=== PATIENT | male | born 1970 | race Caucasian/White ===

== ENCOUNTER → 2024-10-16 | Outpatient (CLI) | payer MEDICAID, SELFPAY ==
[2024-10-16 10:19] LABS: Hematocrit 42.1 % (40-54)
[2024-10-16 12:39] LABS: PSA,Total- Diagnostic 0.77 ng/mL (0.00-4.00)
[2024-10-17 04:07] LABS: PROLACTIN 8.4 ng/mL (3.6-25.2)
== END | disposition home or self-care (01) ==
LOC: MTLAB 07:46
PROVIDERS: PCP Family Medicine
DX: E29.1 Testicular hypofunction (principal)
CPT/HCPCS: 36415; 83002; 84146; 84153; 84403; 85014

== ENCOUNTER → 2024-11-17 | Outpatient (CLI) | payer MEDICAID, SELFPAY ==
[2024-11-17 13:20] LABS: Hematocrit 40.7 % (40-54); Hemoglobin 12.5 g/dL (13.0-16.5); Immature Granulocytes Count 0.740 X10^3/uL (0.0-0.0); Mean Corp Hgb Conc 30.7 g/dL (32-36); Mean Corpuscular Volume 75.8 fL (80-94); Mean Platelet Vol. 9.1 fl (6.2-12.0); NRBC Flagged by Analyzer 0 % (0-5); POSITIVE DIFFERENTIAL YES; POSITIVE MORPHOLOGY YES; Platelet Count 455 K/mm3 (150-450); RBC Distribution Width CV 16.9 % (11.6-14.6); RBC Distribution Width SD 45.1 fl (35.1-43.9); Red Blood Count 5.37 M/mm3 (4.6-6.2); White Blood Count 19.8 K/mm3 (4.4-11.0)
[2024-11-17 13:27] LABS: Iron 27 ug/dL (65-175); Iron Binding Capacity,Unsat 186 ug/dL (228-428)
[2024-11-17 13:38] LABS: Iron Binding Capacity,Total 213 ug/dL (250-450)
[2024-11-17 14:16] LABS: Differential Indicated SCAN CRITERIA MET; Toxic Granulation 1+
--- OUTSIDE RECORDS SUMMARY | 2024-11-17 20:04 | XMS RPT_ITS | CCD ---
Author Organization [facility] Care Team Providers Care Vendette Name Role Phone Esterle, Tisha Unavailable Unavailable Esterle, Tisha Unavailable Unavailable Esterle, Tisha Unavailable Unavailable TIMOTHY ALLEN~[phone], TIMOTHY lawton Unavailable TIMOTHY ALLEN~[id number], TIMOTHY Retana ng Unavailable ORLIN AGUIRRE MD Primary Care Unavailable ESTERLE, TISHA Primary Care Unavailable TIMOTHY ALLEN~[id number], TIMOTHY Morrowittreno ng Unavailable TIMOTHY ALLEN~[id number], TIMOTHY Retana ng Unavailable ESTERLE, TISHA Primary Care Unavailable TIMOTHY ALLEN~[id number], TIMOTHY Morrowittreno ng Unavailable TIMOTHY ALLEN~[id number], TIMOTHY Retana ng Unavailable Tisha Pérez DO Primary Care Provider [phone] CAYETANO GARCIA Attending Provider [phone] Tisha Pérez DO Primary Care Provider [phone] BASAR, SIVA Attending Unavailable BASAR, SIVA Referring Unavailable ESTERLE, TISHA Primary Care Unavailable BASAR, SIVA Attending Unavailable ESTERLE, TISHA Referring Unavailable ESTERLE, TISHA Primary Care Unavailable BASAR, SIVA Admitting Unavailable BASAR, SIVA Attending Unavailable ESTERLE, TISHA Referring Unavailable ESTERLE, TISHA Primary Care Unavailable Tisha Pérez M Primary Care Unavailable MANI LUND Attending Unavailable Tisha Pérez Attending Unavailable Tisha Pérez Primary Care Unavailable Medications Current Medications Medication Drug Class(es) Dates Sig (Normalized) Sig (Original) allopurinol 300 mg oral tablet (5 sources) Xanthine Oxidase Inhibitor Start: 09-22-2024 allopurinol (Zyloprim) 300 MG tablet 09/22/2024 Active ALPRAZolam 1 mg oral tablet (5 sources) Benzodiazepine Start: 09-24-2024 ALPRAZolam (Xanax) 1 MG tablet 09/24/2024 Active amLODIPine 5 mg / benazepril hydrochloride 40 mg oral capsule (5 sources) Dihydropyridine Calcium Channel Ghazal, Angiotensin Converting Enzyme Inhibitor Start: 09-22-2024 amLODIPine-benazepr il (Lotrel) 5-40 MG capsule 09/22/2024 Active B-D 3CC LUER-MARIELOS SYR 25GX1 25G X 1 3 ML misc (5 sources) Start: 09-22-2024 B-D 3CC LUER-MARIELOS SYR 25GX1 25G X 1 3 ML misc 09/22/2024 Active celecoxib 200 mg oral capsule (5 sources) Nonsteroidal Anti-inflammatory Drug Start: 09-22-2024 celecoxib (CeleBREX) 200 MG capsule 09/22/2024 Active cyclobenzaprine hydrochloride 10 mg oral tablet (5 sources) Muscle Relaxant Start: 09-10-2024 take 1 tablet by mouth every eight hours as needed cyclobenzaprine (Flexeril) 10 MG tablet Take 10 mg by mouth every 8 hours as needed. 09/10/2024 Active 0.5 ml dulaglutide 3 mg/ml auto-injector (5 sources) GLP-1 Receptor Agonist Start: 09-17-2024 Trulicity 1.5 MG/0.5ML 09/17/2024 Active empagliflozin 10 mg oral tablet (5 sources) Sodium-Glucose Cotransporter 2 Inhibitor Start: 09-12-2024 take 10 mg by mouth once daily Jardiance 10 MG Take 10 mg by mouth daily. 09/12/2024 Active mesalamine 1200 mg delayed release oral tablet (2 sources) Aminosalicylate Start: 11-04-2024 End: 03-04-2025 take 1 tablet by mouth four times daily mesalamine (Lialda) 1.2 g EC tablet Indications: Hx of ulcerative colitis Take 1 tablet (1.2 g) by mouth 4 times daily. Do not crush, chew, or split. 120 tablet 3 11/04/2024 03/04/2025 Active naloxone hydrochloride 40 mg/ml nasal spray (5 sources) Opioid Antagonist Start: 08-19-2024 naloxone (Narcan) 4 MG/0.1ML nasal spray instill 1 spray in 1 nostril if needed for symptoms of opioid overdose, if no responding repeat again in 3 minutes. If used call 911 08/19/2024 Active omeprazole 40 mg delayed release oral capsule (5 sources) Proton Pump Inhibitor Start: 09-17-2024 omeprazole (PriLOSEC) [address] capsule 09/17/2024 Active predniSONE 10 mg oral tablet (2 sources) Start: 11-04-2024 End: 01-06-2025 take 4 tablets by mouth once daily, then take 3.5 tablets by mouth once daily, then take 3 tablets by mouth once daily, then take 2.5 tablets by mouth once daily, then take 2 tablets by mouth once daily, then take 1.5 tablets by mouth once daily, then take 1 tablet by mouth once daily, then take 0.5 tablet by mouth once daily predniSONE (Deltasone) 10 MG tablet Indications: Hx of ulcerative colitis Take 4 tablets (40 mg) by mouth daily for 14 days, THEN 3.5 tablets (35 mg) daily for 7 days, THEN 3 tablets (30 mg) daily for 7 days, THEN 2.5 tablets (25 mg) daily for 7 days, THEN 2 tablets (20 mg) daily for 7 days, THEN 1.5 tablets (15 mg) daily for 7 days, THEN 1 tablet (10 mg) daily for 7 days, THEN 0.5 tablets (5 mg) daily for 7 days. 154 tablet 11/04/2024 01/06/2025 Active 1 ml testosterone cypionate 200 mg/ml injection (5 sources) Androgen Start: 09-24-2024 testosterone cypionate (Depo-Testosterone) 200 MG/ML injection 09/24/2024 Active traMADol hydrochloride 50 mg oral tablet (5 sources) Opioid Agonist Start: 09-22-2024 traMADol (Ultram) 50 MG tablet 09/22/2024 Active zolpidem tartrate 10 mg oral tablet (5 sources) gamma-Aminobutyric Acid-ergic Agonist Start: 07-29-2024 take 1 tablet by mouth at bedtime as needed zolpidem (Ambien) 10 MG tablet TAKE ONE TABLET BY MOUTH AT BEDTIME NEEDED (FOR insomnia) 07/29/2024 Active Completed/Discontinued Medications Medication Drug Class(es) Dates Sig (Normalized) Sig (Original) polyethylene glycol 3350 350565 mg / potassium chloride 2970 mg / sodium bicarbonate 6740 mg / sodium chloride 5860 mg / sodium sulfate 65858 mg powder for oral solution (1 source) Osmotic Laxative Start: 09-26-2024 End: 09-27-2024 polyethylene glycol (GaviLyte-G) 236 g solution Starting at noon on day prior to procedures, drink 8 ounces every 30 minutes until all gone and stools are clear. May add flavor packet. 4000 mL 09/26/2024 09/27/2024 Problems Problem Classification Problem Date Documented Da te Episodic/Chronic Abdominal pain (7 sources) Right upper quadrant pain; Translations: [Abdominal discomfort] Onset: 5 09-26-2024 Episodic Biliary tract disease (1 source) Other specified diseases of gallbladder; Translations: [OTHER SPEC DISEASES GALLBLADDER] Onset: 5 Episodic Esophageal disorders (5 sources) Gastroesophageal reflux disease without esophagitis; Translations: [Gastro-esophageal reflux disease without esophagitis] Onset: 5 09-26-2024 Chronic Gastrointestinal hemorrhage (2 sources) Hemorrhage of anus and rectum; Translations: [HEMORRHAGE OF ANUS AND RECTUM] Onset: 5 Episodic Malaise and fatigue (1 source) Other fatigue; Translations: [Other fatigue] Onset: 5 Episodic Other endocrine disorders (1 source) Testicular hypofunction; Translations: [Testicular hypofunction] Onset: 5 Chronic Other gastrointestinal disorders (5 sources) H/O: ulcerative colitis; Translations: [Personal history of other diseases of the digestive system] 09-26-2024 Episodic Other gastrointestinal disorders (3 sources) Hemorrhagic diarrhea ; Translations: [Diarrhea, unspecified] 09-26-2024 Episodic Other gastrointestinal disorders (2 sources) Personal history of other diseases of the digestive system; Translations: [Personal history of other diseases of the digestive system] Onset: 5 Episodic Other gastrointestinal disorders (2 sources) Diarrhea, unspecified; Translations: [Diarrhea, unspecified] Onset: 5 Episodic Results Test Name Value Interpretation Reference Range Facility 36on 11-10-2024 36 Noted, thank you. [facility] 36 Spoke with patient basil hall handed phone to his , Rhea. Results and recommendations given to . Explained medications and answered all questions. Has FU appointment 11/28/2024, with Dr. Taylor. Routed to Rodney. Normal [facility] 36 Rhea lvm requesti ng callback to reschedule appt. Pt is rescheduled on 11/28/2024 at 9:00 am. TY Normal [facility] 36 I called patient to try and schedule this appt. I got voicemail. LMTCB. Normal [facility] 36on 11-04-2024 36 Received message amanda Taylor via secure chat. Completed colonoscopy today. Requested to start Can you pls start steroid taper, 40 mg for 2 weeks followed by taper 5 mg/week. And to also start Mesalamine 4.8gr/day. Normal [facility] Laboratory - Chemistry and C hemistry - challengeon 11-04-2024 Glucose [Mass/Vol] 120 mg/dL High 70 - 100 mg/dL [facility] Glucose [Mass/Vol] 140 mg/dL High 70 - 100 mg/dL [facility] No Panel Informationon 11-04 Interpretation and review of laboratory results Abnormal [facility] Performed by: [facility], [address] [place] [address] CLIA ID: [id number] [facility] Interpretation and review of laboratory results Abnormal [facility]formed by: [facility], [address] [place] [address] CLIA ID: [id number] [facility] Nursing Noteon 11-04-2024 Nursing Note Iv was removed while pt supine and he remained supine for 15 minutes then head of bed elevated. He denies feeling lightheaded or dizzy. Ambulates to restroom and gait is steady. Normal [facility] Nursing Note Discharge instructio markel discussed with pt and .provided with paper instructions. Dr taylor was at bedside discussing findings. Denies diaphoresis or lightheadedness. Vss. Denies pain. Normal [facility] Nursing Note Up to BR s event, no change comfort Normal [facility] Nursing Note CIRCUIT MANAGER Miguel Ángel admins 2 mg Versed for pt's nerves (cause of events). Pt states he feels he no longer needs O2, now on room air Normal [facility] Nursing Note Miguel Ángel Sherry SAV feldman nds, sandra pt, aware of events at bedside Normal [facility] Nursing Note BP 116/63, Sa02 98, states he feels better, less diaphoretic. SAV Riveroph Sherry is aware of prior interventions, will round howard Normal [facility] Nursing Note BP 80's over 40's x 3 reads, pt requested O2 2/2 feeling short of breath: O2 at 2L NC, IVF wide open Normal [facility] 36on 10-30-[address] Siva Taylor EGD/Colonoscopy Date: 11/04/24 Arrival time: 9:45 am Please report to: [facility] [place] [address] Called pt to confirm scheduled procedure, no answer. Left message for pt to return phone call if they cannot attend procedure or if they have any questions or concerns. Prep instructions sent via [employer] if active. Normal [facility] PROLACTIN 4465on 10-17-2024 PROLACTIN 8.4 ng/mL Normal 3.6-25.2 [facility] Comment on above: Result Comment: Perf ormed at: - [facility] [address] [id number] [employer] Paraprofessional: Giuliano Figueredo PhD, Phone: [phone] Performed By: #### L 3100.5400, L3100.5170, L509.3001, L100.1400, L501.9940 #### [facility] [address] [place], [place], [id number] Hematocriton 10-16-2024 Hematocrit (Bld) [Volume fraction] 42.1 % Normal 40-54 [facility] Comment on above: Performed By: #### L 3100.5400, L3100.5170, L509.3001, L100.1400, L501.9940 #### [facility] [address] [place], [place], [id number] Hematocrit Auto (Bld) [Volum e fraction]on 10-16-2024 Hematocrit (Bld) [Volume fraction] 42.1 % 40-54 [facility] L509.3001on 10-16-2024 Testosterone [Mass/Vol] 401.00 ng/dL Normal 300-890 [facility] Comment on above: Performed By: #### L 3100.5400, L3100.5170, L509.3001, L100.1400, L501.9940 #### [facility] [address] [place], [place], [id number] LH ser/plason 10-16-2024 Lutropin Qn m[IU]/mL [facility] Comment on above: FEMALE:Follicular: 1 .9-12.5 mIU/mLMidcycle: 8.7-76.3 mIU/mLLuteal: 0.5-16.9 mIU/mLPost Menopause: 15.9-54.0 mIU/mLMALE:20-70 Years: 1.5-9.3 mIU/mL>70 Years: 3.1-34.6 mIU/mL Laboratory - Chemistry and C hemistry - challengeon 10-16-2024 Testosterone [Mass/Vol] 401.00 ng/dL 300-890 [facility] Luteinizing Hormoneon 2024 LH < 0.3 Normal [facility] Comment on above: Result Comment: FEMA LE: Follicular: 1.9-12.5 mIU/mL Midcycle: 8.7-76.3 mIU/mL Luteal: 0.5-16.9 mIU/mL Post Menopause: 15.9-54.0 mIU/mL MALE: 20-70 Years: 1.5-9.3 mIU/mL >70 Years: 3.1-34.6 mIU/mL Performed By: #### L 3100.5400, L3100.5170, L509.3001, L100.1400, L501.9940 #### [facility] [address] [place], [place], [id number] PSA,Total- Diagnosticon PSA, DIAGNOSTIC 0.77 ng/mL Normal 0.00-4.00 [facility] Comment on above: Result Comment: This test was performed using the [employer] tPSA method. Measured values of a patient??sample can vary depending on the testing procedure used. PSA values determined on patient samples by different testing procedures cannot be used interchangeably. If there is a change in PSA assays while monitoring therapy, sequential testing should be performed to confirm baseline values. Performed By: #### L 3100.5400, L3100.5170, L509.3001, L100.1400, L501.9940 #### [facility] [address] [place], [address] Serum or plasma prolactin me asurement (mass/volume)on 10-16-2024 Prolactin [Mass/Vol] 8.4 ng/mL 3.6-25.2 [facility] Comment on above: Performed at: [address] [id number] Director: Giuliano Figueredo PhD, Phone: [phone] 36on 10-07-2024 36 Spoke with , Brandi avelar explained medication can not be prescribed until Bx results from EGD/Colonoscopy. Verbalized understanding. Dr. Taylor notified. [facility] 36 ----- Message from Sridevi Taylor MD sent at 10/07/2024 11:09 AM EDT ----- We cannot start a medication before we have biopsy results from EGD/Colonoscopy Thanks ----- Message ----- From: Sydnie De Leon RN Sent: 10/07/2024 10:38 AM EDT To: Siva Taylor MD ----- Message from Sydnie De Leon RN sent at 10/07/2024 10:38 AM EDT ----- FYI, thanks [facility] 36 Rhea called, results and recommendations given. Claims full understanding and questions answered. Patient and asking if a medication is going to be prescribed for inflammation while waiting for EGD/Colonoscopy scheduled on 11/04/2024. Please advise. Dr. Taylor notified. [facility] 36 Attempt x1, message left. Normal [facility] 36 ----- Message from Sridevi Taylor MD sent at 10/07/2024 9:29 AM EDT ----- Please notify the patient that the labs are consistent with inflammation which may be related to ulcerative colitis and we will further evaluate this is scheduled colonoscopy. Stool test does not show any infection. Thanks ----- Message ----- From: [employer] Efrem Mackey Sent: 10/02/2024 9:12 AM EDT To: Siva Taylor MD [facility] Progress Noteon 10-07-2024 Progress Note Please notify the pa tient that the labs are consistent with inflammation which may be related to ulcerative colitis and we will further evaluate this is scheduled colonoscopy. Stool test does not show any infection. Thanks [facility] C-REACTIVE PROTEINon 025 CRP [Mass/Vol] 22.1 mg/L High <5.0 [facility] Comment on above: Performed By: #### L AB149, LAB17 #### Manager Field Services: NICOLAS DONALDSON ([id number]) [facility]SWRL[facility]) [address] [place] [address] CBC (HEMOGRAM)on 10-02-2024 Erythrocyte distribution width (RBC) [Ratio] 16.3 % High 11.5-15.0 [facility] Comment on above: Performed By: #### L AB294 ####Manager Field Services: NICOLAS DONALDSON ([id number])[facility] [employer] (SWRLAB)[address] [place] [address] Hematocrit (Bld) [Volume fraction] 40.4 % Normal 40.0-52.0 [facility] Comment on above: Performed By: #### L AB294 ####Manager Field Services: NICOLAS DONALDSON ([id number])[facility] [employer] (RLAB)[address] [place] [address] Hemoglobin (Bld) [Mass/Vol] 13.1 g/dL Normal 13.0-18.0 [facility] Comment on above: Performed By: #### L AB294 ####Manager Field Services: NICOLAS DONALDSON ([id number])[facility] CHAVARRIA RITTMAN (SWRLAB)[address] [place] [address] MCH (RBC) [Entitic mass] 24.5 pg Low 26.0-34.0 [facility] Comment on above: Performed By: #### L AB294 ####Manager Field Services: NICOLAS DONALDSON ([id number])[facility] CHAVARRIA RITTMAN (SWRLAB)[address] [place] [address] MCHC 32.4 % Normal 30.5-36.0 [facility] Comment on above: Performed By: #### L AB294 ####Manager Field Services: NICOLAS DONALDSON ([id number])[facility] CHAVARRIA RITTMAN (SWRLAB)[address] [place] [address] MCV (RBC) [Entitic vol] 75.5 fL Low 77.0-99.0 [facility] Comment on above: Performed By: #### L AB294 ####Manager Field Services: NICOLAS DONALDSON ([id number])[facility] CHAVARRIA RITTMAN (SWRLAB)[address] [place] [address] Platelet mean volume (Bld) [Entitic vol] 8.8 fL Low 9.0-12.7 [facility] Comment on above: Result Comment: MPV is a calculated measurement using platelet volume ratio Performed By: #### L AB294 ####Manager Field Services: NICOLAS DONALDSON ([id number])[facility] CHAVARRIA RIT[employer] (SWRLAB)[address] [place] [address] Platelets (Bld) [#/Vol] 315 10*3/uL Normal 140-440 [facility] Comment on above: Performed By: #### L AB294 ####Manager Field Services: NICOLAS DONALDSON ([id number])[facility] CHAVARRIA RITTMAN (SWRLAB)[address] [place] [address] RBC (Bld) [#/Vol] 5.35 10*6/uL Normal 4.40-5.90 [facility] Comment on above: Performed By: #### L AB294 ####Manager Field Services: NICOLAS DONALDSON ([id number])YAIR CHAVARRIA RITTMAN (SWRLAB)[address] WBC (Bld) [#/Vol] 7.7 10*3/uL Normal 3.6-10.7 [facility] Comment on above: Performed By: #### L AB294 ####Manager Field Services: NICOLAS DONALDSON ([id number])[facility] CHAVARRIA RITTMAN (SWRLAB)[address] COMPREHENSIVE METABOLIC PANE David 10-02-2024 Albumin [Mass/Vol] 3.6 g/dL Normal 3.5-5.0 [facility] Comment on above: Performed By: #### L AB149, LAB17 ####Manager Field Services: NICOLAS DONALDSON ([id number])[facility] CHAVARRIA RITTMAN (SWRLAB)[address] ALP [Catalytic activity/Vol] 73 U/L Normal 40-150 [facility] Comment on above: Performed By: #### L AB149, LAB17 ####Manager Field Services: NICOLAS DONALDSON ([id number])[facility] CHAVARRIA [facility]IT[employer] (SWRLAB)[address] ALT [Catalytic activity/Vol] 19 U/L Normal <40 [facility] Comment on above: Performed By: #### L AB149, LAB17 ####Manager Field Services: NICOLAS DONALDSON ([id number])[facility] CHAVARRIA [facility] (SWRLAB)[address] Anion gap [Moles/Vol] 10 mmol/L Normal 3-13 [facility] Comment on above: Performed By: #### L AB149, LAB17 ####Manager Field Services: NICOLAS DONALDSON ([id number])[facility] CHERRYDEON RITTMAN (SWRLAB)[address] [place] [address] [place] AST [Catalytic activity/Vol] 19 U/L Normal <34 [facility] Comment on above: Performed By: #### L AB149, LAB17 ####Manager Field Services: NICOLAS DONALDSON ([id number])YAIR CHAVARRIA [employer] (SWRLAB)[address] [place] [address] [place] Bilirubin [Mass/Vol] 0.3 mg/dL Normal <1.2 [facility] Comment on above: Performed By: #### L AB149, LAB17 ####Manager Field Services: NICOLAS DONALDSON ([id number])[facility] CHAVARRIA RITTMAN (SWRLAB)[address] [place] [address] [place] Calcium [Mass/Vol] 9.2 mg/dL Normal 8.4-10.2 [facility] Comment on above: Performed By: #### L AB149, LAB17 ####Manager Field Services: NICOLAS DONALDSON ([id number])[facility] CHAVARRIA RITTMAN (SWRLAB)[address] [place] [address] [place] Chloride [Moles/Vol] 106 mmol/L Normal 98-107 [facility] Comment on above: Performed By: #### L AB149, LAB17 ####Manager Field Services: NICOLAS DONALDSON ([id number])[facility] CHERRYDEON RITTMAN (SWRLAB)[address] [place] [address] [place] CO2 [Moles/Vol] 21 mmol/L Low 22-29 [facility] Comment on above: Performed By: #### L AB149, LAB17 ####Manager Field Services: NICOLAS DONALDSON ([id number])[facility] CHERRYDEON RITTMAN (SWRLAB)[address] [place] [address] [place] Creatinine [Mass/Vol] 1.03 mg/dL Normal 0.72-1.25 [facility] Comment on above: Performed By: #### L AB149, LAB17 ####Manager Field Services: NICOLAS DONALDSON ([id number])[facility] CHERRYDEON RITTMAN (SWRLAB)[address] [place] [address] [place] GLOMERULAR FILTRATION RATE ML/MIN/1.73 SQ M.PREDICTED 87.4 mL/min/1.73m*2 Normal >60.0 [facility] Comment on above: Result Comment: Calc ulation based on the Chronic Kidney Disease Epidemiology Collaboration (CKD-EPI) equation refit without adjustment for race Performed By: #### L AB149, LAB17 ####Manager Field Services: NICOLAS DONALDSON ([id number])[facility] CHAVARRIA RITTMAN (SWRLAB)[address] [place] [address] [place] Glucose [Mass/Vol] 117 mg/dL High 74-100 [facility] Comment on above: Performed By: #### L AB149, LAB17 ####Manager Field Services: NICOLAS DONALDSON ([id number])[facility] CHERRYDEON RITTMAN (SWRLAB)[address] [place] [address] [place] Potassium [Moles/Vol] 4.2 mmol/L Normal 3.5-5.1 [facility] Comment on above: Result Comment: Plas ma potassium values may be up to 0.5 mmol/L lower than serum values. Performed By: #### L AB149, LAB17 ####Manager Field Services: NICOLAS DONALDSON ([id number])[facility] CHAVARRIA RITTMAN (SWRLAB)[address] [place] [address] [place] Protein [Mass/Vol] 7.3 g/dL Normal 6.4-8.3 [facility] Comment on above: Performed By: #### L AB149, LAB17 ####Manager Field Services: NICOLAS DONALDSON ([id number])[facility] CHERRYDEON RITTMAN (SWRLAB)[address] [place] [address] [place] Sodium [Moles/Vol] 137 mmol/L Normal 136-145 [facility] Comment on above: Performed By: #### L AB149, LAB17 ####Manager Field Services: NICOLAS DONALDSON ([id number])[facility] CHERRYDEON RITTMAN (SWRLAB)[address] Urea nitrogen [Mass/Vol] 25 mg/dL High 9-23 [facility] Comment on above: Performed By: #### L AB149, LAB17 ####Manager Field Services: NICOLAS DONALDSON ([id number])[facility]DEONELIZAB[facility]HT[facility]PITALLAURE (SWRLAB)[address] GASTROINTESTINAL PCR PANELon 10-02-2024 GASTROINTESTINAL PCR PANEL CAMPYLOBACTER Reference Not Detected Not Detected PLESIOMONAS SHIGELLOIDES Reference Not Detected Not Detected SALMONELLA Reference Not Detected Not Detected VIBRIO SPECIES Reference Not Detected Not Detected VIBRIO CHOLERAE Reference Not Detected Not Detected YERSINIA ENTEROCOLITICA Reference Not Detected Not Detected ENTEROTOXIGENIC E COLI (ETEC) Reference Not Detected Not Detected SHIGA TOXIN-PRODUCING E COLI (STEC) Reference Not Detected Not Detected SHIGELLA/ENTEROINVASIVE E COLI (EIEC) Reference Not Detected Not Detected CRYPTOSPORIDIUM Reference Not Detected Not Detected CYCLOSPORA CAYETANENSIS Reference Not Detected Not Detected ENTAMOEBA HISTOLYTICA Reference Not Detected Not Detected GIARDIA LAMBLIA Reference Not Detected Not Detected ADENOVIRUS F 40/41 Reference Not Detected Not Detected ASTROVIRUS Reference Not Detected Not Detected NOROVIRUS GI/GII Reference Not Detected Not Detected ROTAVIRUS A Reference Not Detected Not Detected SAPOVIRUS Reference Not Detected Not Detected ORDER COMMENTS: A positive Norovirus result on the Film Array GI panel should be interpreted in the context of the patient's history and clinical picture. If results are not consistent, result should be confirmed with a Norovirus specific assay. Methodology: Multiplex PCR [facility] Comment on above: Performed By: #### L [id number] #### Manager Field Services: NICOLAS DONALDSON ([phone]) [facility] ([facility]) [address] [place] [address] 37on 09-26-2024 37 Labs and stool tests EGD and Colonoscopy at [place], (ok to use screening spot per Dr Taylor) Santosh Chavarria. 11/04/24 at 11:45 am arrive at 10:[address] Taylor. Case #[id number] Follow up in 3 months [facility] Office Visiton 09-26-2024 Follow-up visit [id number] Luis Alfredo Santana on L 1970 M Date Provider Department Center 09/26/2024 [id number], SIVA [facility] GAS None No family history on file Level of Service:65208 AL OFFICE/OUTPATIENT NEW MODERATE MDM 45 MINUTES Reason for Visit and Comments: New Patient [542] - K51.919 Acute UC w/ complication Normal [facility] Progress Noteon 09-26-2024 Progress Note [facility] GASTRO[facility] - [address] [facility] [address] Dept: [phone] Dept Loc: [phone] Visit type: New patient Reason for Visit: New Patient (K51.919 Acute UC w/ complication) Assessment and Plan 1. History of ulcerative colitis - CBC - Comprehensive metabolic panel - C-reactive protein - Gastrointestinal PCR Panel - C. DIFFICILE by PCR with Reflex to EIA 2. Bloody diarrhea - CBC - Comprehensive metabolic panel - C-reactive protein - Gastrointestinal PCR Panel - C. DIFFICILE by PCR with Reflex to EIA 3. Abdominal discomfort - CBC - Comprehensive metabolic panel - C-reactive protein - Gastrointestinal PCR Panel - C. DIFFICILE by PCR with Reflex to EIA Mr Santana is a 54-year-old male with past medical history of hypertension diabetes, gout disease, WAYNE, GERD and remote history of ulcerative colitis here to establish care. He was diagnosed with ulcerative colitis when he was 20s with colonoscopy because of abdominal pain and bloody diarrhea and he was placed on steroid and mesalamine for 3 years. He stopped the medications by himself 3 years later without a repeat colonoscopy and did not have any symptoms until last 2 years. He was taking OTC naproxen in a high dose for the joint and body pain and he started to have mucus which gradually turned into bloody diarrhea at least 3-4 times a day. He was recently treated with antibiotics and steroids and he states his GI symptoms resolved while he was on steroids. He does not have abdominal pain but lower abdominal discomfort, weight loss. He denies extraintestinal manifestations of IBD. He does not have family history of colon cancer but has a cousin who has Crohn's disease. He had a longstanding GERD in the past however after he lost weight with diabetes treatment, he occasionally has GERD symptoms and is not currently on PPI. We will obtain CBC CMP CRP, rule out infection with GI panel PCR and C. difficile testing. Will schedule him for EGD and colonoscopy Follow up in about 3 months (around 12/27/2024). Siva Taylor MD Gastroenterology Subjective Mr Santana is a 54-year-old male with past medical history of hypertension diabetes, gout disease, WAYNE, GERD and remote history of ulcerative colitis here to establish care. He was diagnosed with ulcerative colitis when he was 20s with colonoscopy because of abdominal pain and bloody diarrhea and he was placed on steroid and mesalamine for 3 years. He stopped the medications by himself 3 years later without a repeat colonoscopy and did not have any symptoms until last 2 years. He was taking OTC naproxen in a high dose for the joint and body pain and he started to have mucus which gradually turned into bloody diarrhea at least 3-4 times a day. He was recently treated with antibiotics and steroids and he states his GI symptoms resolved while he was on steroids. He does not have abdominal pain but lower abdominal discomfort, weight loss. He denies extraintestinal manifestations of IBD. He does not have family history of colon cancer but has a cousin who has Crohn's disease. He had a longstanding GERD in the past however after he lost weight with diabetes treatment, he occasionally has GERD symptoms and is not currently on PPI. Review of Systems Constitutional: Negative for fatigue, fever and unexpected weight change. HENT: Negative for mouth sores and trouble swallowing. Eyes: Negative for redness and visual disturbance. Respiratory: Negative for cough and shortness of breath. Cardiovascular: Negative for chest pain, palpitations and leg swelling. Gastrointestinal: Positive for abdominal pain, blood in stool and diarrhea. Negative for abdominal distention, constipation, nausea, rectal pain and vomiting. Endocrine: Negative for cold intolerance and heat intolerance. Genitourinary: Negative for difficulty urinating. Musculoskeletal: Negative for arthralgias and joint swelling. Skin: Negative for color change, pallor and rash. Allergic/Immunologic: Negative for immunocompromised state. Neurological: Negative for weakness and numbness. Hematological: Does not bruise/bleed easily. Psychiatric/Behavioral: The patient is not nervous/anxious. Allergies[1] Current Medications[2] Medical History[3] Social History Tobacco Use Smoking status: Never Smokeless tobacco: Never Substance Use Topics Alcohol use: Never Surgical History[4] Family History[5] Objective BP 131/78 Pulse 94 Temp 36.8 ?C (98.2 ?F) Ht 5' 11 (1.803 m) Wt 213 lb (96.6 kg) SpO2 96% BMI 29.71 kg/m? Physical Exam Vitals and nursing note reviewed. Constitutional: General: He is not in acute distress. Appearance: Normal appearance. He is normal weight. HENT: Head: Normocephalic. Eyes: General: No scleral icterus. Cardiovascular: Rate and Rhythm: Normal rate and regular rhyt (more content not included)... Normal [facility] 36on 07-28-2024 36 Per pt , pt saw provider at [facility], does not wish to continue. Would like to transfer care to [facility]. Discussed with [place], scheduled newpt visit with Dr Taylor 09/26/24 11:00 am. Normal [facility] Fat Qual Stoolon 06-20-2024 Fecal Fat, Qualitative SEE BELOW Normal Normal [facility] Comment on above: Result Comment: Poss ible interfering substance. The presence of a large amount of neutral fats indicate possible ingestion of mineral or castor oil, low-calorie fat substitute or use of rectal suppositories. Test Performed by [facility], [facility], [address] [place] [address] Mateus Wade M.D., Ph.D., Director of Laboratories , CLIA [id number] Performed By: #### F ATSTQL #### [facility] [address] [place] [address] Lactoferrin, Fecalon 025 Lactoferrin, Fecal by PANCHO Positive Abnormal [facility] Comment on above: Result Comment: A po sitive result is indicative of the presence of lactoferrin, a marker for fecal leukocytes. Performed By: [facility] [address] [place] [address] Medical Receptionist Assistant: Rodney Ugalde MD, PhD CLIA Number: [id number] Performed By: #### C ALPRO, FECLACT, FECALPE #### [facility] [address] [place], [place] [address] Calprotectin, Fecalon 2024 Calprotectin, Fecal 46 ug/g Normal <=49 [facility] Comment on above: Result Comment: REFE RENCE INTERVAL: Calprotectin, Fecal by Immunoassay Less than 50 ug/g........Normal 50-120 ug/g..............Borderline elevated, test should be re-evaluated in 4-6 weeks. 121 ug/g or greater......Elevated Performed By: [facility] [address] [place] [address] Medical Receptionist Assistant: Rodney Ugalde MD, PhD CLIA Number: [id number] Performed By: #### C JAREN FECLACT, FECALPE #### [facility] [address] [place] [id number] Pancreatic Elastase, Fecalon 06-19-2024 Pancreatic Elastase, Fecal >800 Normal >=[address] [facility] Comment on above: Result Comment: REFE RENCE INTERVAL: Pancreatic Elastase Fecal by Immunoassay Less than 100 ug/g............Severe insufficiency 100 - 199 ug/g................Moderate insufficiency 200 ug/g or greater...........Normal INTERPRETIVE INFORMATION: Pancreatic Elastase Fecal by Immunoassay Reference intervals do not apply for infants less than one month old. Performed By: [facility] [address] [place] [id number] Medical Receptionist Assistant: Rodney Ugalde MD, PhD CLIA Number: [id number] Performed By: #### C KARISHMARO FECLACT, FECALPE #### [facility] [address] [place] [id number] Gliadin Ab Profile IgG/IgAon 06-16-2024 Deaminated Gliadin Abs, IgA 4 units Normal 0-[address] [facility] Comment on above: Order Comment: Perfo rmed at: CB [address] [id number] [employer] Paraprofessional: Giuliano Figueredo PhD, Phone: [phone] Result Comment: Nega tive 0 - 19 Weak Positive 20 - 30 Moderate to Strong Positive >30 Performed By: #### T TGIGA, GLDPRF #### [facility] RESULTS Deaminated Gliadin Abs, IgG 2 units Normal 0-[address] [facility] Comment on above: Order Comment: Perfo rmed at: CB - [facility] [address] [id number] [employer] Paraprofessional: Giuliano Figueredo PhD, Phone: [phone] Result Comment: Nega tive 0 - 19 Weak Positive 20 - 30 Moderate to Strong Positive >30 Performed By: #### T TGIGA, GLDPRF #### [facility] RESULTS Occult Blood, Fecal by IAon 06-16-2024 Fecal Occult Bld-IA Positive Abnormal NEGATIVE [facility] Comment on above: Performed By: #### F IT #### [place] [address] Tissue Transglutaminase IgAo n 06-16-2024 Tissue Translutaminase IgA <2 Normal 0-[address] [facility] Comment on above: Order Comment: Perfo rmed at: CB - [facility] [address] [id number] [employer] Paraprofessional: Giuliano Figueredo PhD, Phone: [phone] Result Comment: Nega tive 0 - 3 Weak Positive 4 - 10 Positive >10 . Tissue Transglutaminase (tTG) has been identified as the endomysial antigen. Studies have demonstr- ated that endomysial IgA antibodies have over 99% specificity for gluten sensitive enteropathy. Performed By: #### T TGIGA, GLDPRF #### [facility] RESULTS C-Reactive Proteinon 025 CRP [Mass/Vol] 7.1 mg/L Normal <=9.[address] [facility] Comment on above: Performed By: #### C RPR #### [place] [id number] US Abdomen Limitedon 018 US Abdomen Limited Patient Name: ORLIN BROWN Ultrasound Exam Date/Time 12/10/2017 13:17:20 EDT Exam US Abdomen Limited Ordering Physician DO PÉREZ LISA Accession Number [id number] CPT4 Codes 55638 () Reason For Exam abnormal LFT Report Indication: Abnormal liver function tests. Ultrasound of the right upper quadrant was performed. The study is limited due to a combination of the patient's body habitus and overlying bowel gas. Portions of the liver are suboptimally visualized. The liver is dense consistent with fatty infiltration and/or hepatocellular disease. No definite focal intrahepatic masses are visualized. The gallbladder is visualized and is without evidence of cholelithiasis. There is no intrahepatic biliary ductal dilatation. The pancreas and common bile duct are not visualized. Cursory evaluation of the right kidney shows no evidence of hydronephrosis. Impression: Limited study. 1. Dense liver consistent with fatty infiltration and/or hepatocellular disease. No evidence of cholelithiasis or intrahepatic ductal dilatation. 2. Nonvisualization of the pancreas and common bile duct. Report Dictated on Final Dictated: 12/10/2017 3:48 pm Dictating Physician: DO VALDES ANTHONY Signed Date and Time: 12/10/2017 3:50 pm Signed by: DO VALDES ANTHONY Transcribed Date and Time: 12/10/2017 3:48 Normal [facility] CNPTOUTREACHocynthia 02-13-2017 [facility] Patient Outreach (FAMPBR) JARED SANTANA ([id number]) 1970 MDate Time Provider Xiamjwdlpc90/31/17 SHONNA BRITO (RUFINO) FAMPBR During your visit today, we recorded the following information about you:Allergies As of Date: 02/13/2017(No Known Allergies)Date Reviewed: 01/04/2016Reviewed by: Kelsie Oliveira Cma - Fully AssessedReason for Visit: [facility] Outreach [[id number]] Cmt: dilated retinal examPrescriptions as of 02/13/2017 Sig: ALLOPURINOL 300 MG TABLET Take 1 tablet by mouth once d* ALPRAZOLAM 1 MG TABLET Take 0.5-1 tablets by mouth t* TRAZODONE 50 MG TABLET Take 0.5-3 tablets by mouth d* LIRAGLUTIDE 0.6 MG/0.1 ML (18* Inject 1.8 mg subcutaneously * PEN NEEDLE, DIABETIC 31 GAUGE* Use with pen device METOPROLOL SUCCINATE ER 50 MG* Take 1 tablet by mouth once d* AMLODIPINE 5 MG-BENAZEPRIL 40* Take 1 capsule by mouth once * BLOOD SUGAR DIAGNOSTIC STRIPS Use as directed, once daily METFORMIN 1,000 MG TABLET Take 1 tablet by mouth twice * ATORVASTATIN 40 MG TABLET Take 1 tablet by mouth daily * BLOOD-GLUCOSE METER KIT Test glucose once daily NAPROXEN 500 MG TABLET Take 1 tablet by mouth as nee*Problem List As Of Date 02/13/2017 Noted Resolved Diabetes mellitus type 2, controlled, without c*INVALID FOR* More... Dyslipidemia [E78.5] INVALID FOR* Essential hypertension [I10] INVALID FOR* Anxiety [F41.9] INVALID FOR* Persistent insomnia [G47.00] INVALID FOR* Status:Closed by SHONNA BRITO LPN on 02/16/17 [facility] 12-01-2016 CNPTOUTREACH Patient Outreach (FAMPBR) JARED SANTANA ([id number]) 1970 MDate Time Provider Department12/01/16 YULIET AARON FAMPBR During your visit today, we recorded the following information about you:Shonna Brito LPN 12/06/2016 4:35 PM SignedPatient has changed doctors,due to insurance.Allergies As of Date: 12/01/2016(No Known Allergies)Date Reviewed: 01/04/2016Reviewed by: Kelsie Oliveira Cma - Fully AssessedPrescriptions as of 12/01/2016 Sig: ALLOPURINOL 300 MG TABLET Take 1 tablet by mouth once d* ALPRAZOLAM 1 MG TABLET Take 0.5-1 tablets by mouth t* TRAZODONE 50 MG TABLET Take 0.5-3 tablets by mouth d* LIRAGLUTIDE 0.6 MG/0.1 ML (18* Inject 1.8 mg subcutaneously * PEN NEEDLE, DIABETIC 31 GAUGE* Use with pen device METOPROLOL SUCCINATE ER 50 MG* Take 1 tablet by mouth once d* AMLODIPINE 5 MG-BENAZEPRIL 40* Take 1 capsule by mouth once * BLOOD SUGAR DIAGNOSTIC STRIPS Use as directed, once daily METFORMIN 1,000 MG TABLET Take 1 tablet by mouth twice * ATORVASTATIN 40 MG TABLET Take 1 tablet by mouth daily * BLOOD-GLUCOSE METER KIT Test glucose once daily NAPROXEN 500 MG TABLET Take 1 tablet by mouth as nee*Problem List As Of Date 12/01/2016 Noted Resolved Diabetes mellitus type 2, controlled, without c*INVALID FOR* More... Dyslipidemia [E78.5] INVALID FOR* Essential hypertension [I10] INVALID FOR* Anxiety [F41.9] INVALID FOR* Persistent insomnia [G47.00] INVALID FOR* Status:Closed by SHONNA BRITO LPN on 12/06/16 Normal [facility] PROGRESSon 12-01-2016 PROGRESS HNO ID: [id number] Author: Shonna Brito LPN Service: (none) Author Type: (none) Type: Progress Notes Filed: 12/06/2016 4:35 PM Note Text: Patient has changed doctors,due to insurance. Normal [facility] Vital Signs Date Time Vital Sign Value Performing Clinician Berenice lyle 11-04-2024 12:20-0400 Diastolic blood pressure 66 mm[Hg] Siva Taylor MD Work Phone: [facility] [employer] 11-04-2024 12:20-0400 Heart rate 74 /min Siva Taylor MD Work Phone: [employer] 11-04-2024 12:20-0400 SaO2% (BldA) [Mass fraction] 97 % Siva Taylor MD Work Phone: [employer] 11-04-2024 12:20-0400 Systolic blood pressure 132 mm[Hg] Siva Taylor MD Work Phone: [employer] 11-04-2024 11:50-0400 Respiratory rate 18 /min Siva Taylor MD Work Phone: [facility] [employer] 11-04-2024 11:32-0400 Body temperature 97.3 [degF] Siva Taylor MD Work Phone: [facility] [employer] 11-04-2024 10:06-0400 Body mass index (BMI) [Ratio] 27.34 kg/m2 Siva Taylor MD Work Phone: [facility] [employer] 11-04-2024 10:06-0400 Body weight 88.91 kg Siva Taylor MD Work Phone: [facility] [employer] 11-04-2024 10:00-0400 Body height 180.3 cm Siva Taylor MD Work Phone: [facility] [employer] 09-26-2024 11:05-0400 Body height 180.3 cm Siva Taylor MD Work Phone: [facility] [employer] 09-26-2024 10:59-0400 Body mass index (BMI) [Ratio] 29.71 kg/m2 Siva Taylor MD Work Phone: [facility] [employer] 09-26-2024 10:59-0400 Body temperature 98.2 [degF] Siva Taylor MD Work Phone: [facility] [employer] 09-26-2024 10:59-0400 Body weight 96.62 kg Siva Taylor MD Work Phone: [facility] [employer] 09-26-2024 10:59-0400 Diastolic blood pressure 78 mm[Hg] Siva Taylor MD Work Phone: [facility] [employer] 09-26-2024 10:59-0400 Heart rate 94 /min Siva Taylor MD Work Phone: [facility] [employer] 09-26-2024 10:59-0400 SaO2% (BldA) [Mass fraction] 96 % Siva Taylor MD Work Phone: [facility] [employer] 09-26-2024 10:59-0400 Systolic blood pressure 131 mm[Hg] Siva Taylor MD Work Phone: [facility] Encounters Encounter Date Encounter Type Care Provider Facility Start: 11-13-2024 ambulatory Tisha Pérez Facility :[facility] Start: 11-04-2024 End: 11-04-2024 Telephone encounter Rodney Panda PA-C Work Phone: [facility] [place] Start: 11-04-2024 End: 11-04-2024 ambulatory [facility] Start: 11-04-2024 End: 11-04-2024 Subsequent hospital visit by physician Siva Taylor MD Work Phone: [facility] Endoscopy Comment on above: Hx of ulcerative col itis; Bloody diarrhea; Abdominal discomfort; GERD without esophagitis Start: 10-16-2024 End: 10-16-[address] Tisha Pérez DO Work Phone: [facility] [employer] Start: 10-16-2024 End: 10-16-[address] Tisha Pérez DO Work Phone: [facility] Work Phone: Start: 10-16-2024 End: 10-16-2024 ambulatory Tisha Pérez Facility:[facility] Start: 10-02-2024 End: 10-02-2024 ambulatory [facility] Start: 09-26-2024 End: 09-26-2024 Office outpatient new 45 minutes Siva Taylor MD Work Phone: [facility] Comment on above: History of ulcerativ e colitis (Primary Dx); Bloody diarrhea; Abdominal discomfort; Gastroesophageal reflux disease without esophagitis Start: 09-26-2024 End: 09-26-2024 ambulatory SIVA [facility] Start: 07-23-2024 End: 07-23-2024 Telephone encounter Ryann Guerra MD Work Phone: [facility] [place] Start: 07-02-2024 End: 07-02-2024 ambulatory TISHA PÉREZ [facility] Start: 06-16-2024 End: 06-16-2024 ambulatory TIMOTHY AGUIRRE MD~[id number] [facility] Start: 06-12-2024 End: 06-12-2024 ambulatory TISHA PÉREZ [facility] Start: 12-10-2017 Patient encounter Tisha Pérez [facility] Procedures Date Procedure Procedure Detail Performing Clinician Start: 11-04-2024 Glucose quantitative blood xcpt reagent strip Siva Taylor MD Work Phone: Start: 11-04-2024 Glucose quantitative blood xcpt reagent strip Siva Taylor MD Work Phone: Start: 11-04-2024 Colonoscopy Siva Taylor MD Work Phone: Start: 10-16-2024 Assay of prostate sp ecific antigen total Dr. Tisha Pérez DO Work Phone: Comment on above: This test was perfor med using the [employer] tPSA method. Measured values of a patient sample can vary depending on the testing procedure used. PSA values determined on patient samples by different testing procedures cannot be used interchangeably. If there is a change in PSA assays while monitoring therapy, sequential testing should be performed to confirm baseline values. Plan of Treatment Date Care Activity Detail Author Start: 2047 RSV Immunization for Adults (1 - 1-dose 75+ series) RSV Immunization for Adults (1 - 1-dose 75+ series) [facility] Start: 11-04-2034 Screening for malignant neoplasm of colon [facility] Start: 10-02-2025 Diabetes: Estimated Glomerular Filtration Rate for Kidney Health Diabetes: Estimated Glomerular Filtration Rate for Kidney Health [facility] Start: 12-26-2024 End: 12-26-2024 Patient encounter procedure 12/26/2024 9:30 AM EDT Office Visit [facility] [place] [address] [place] [address] Siva Taylor MD [address] [place] [address] [place] [id number] [facility] [place] Start: 12-15-2024 Influenza vaccination [facility] Start: 11-28-2024 End: 11-28-2024 Patient encounter procedure 11/28/2024 9:00 AM EDT [facility] [place] [address] [place] [address] Siva Taylor MD [address] [place] [address] [place] [id number] [facility] [place] Start: 11-04-2024 End: 11-04-2024 Admission to same day surgery center 11/04/2024 11:45 AM EDT - 11/04/2024 12:45 PM EDT Surgery [facility] Endoscopy [address] [place] [phone] Siva Taylor MD [address] [place] [address] [place] [id number] ESOPHAGOGASTRODUODENOSCOPY WITH BIOPSY [62771 (CPT )] [facility] Endoscopy Comment on above: ESOPHAGOGASTRODUODENOSCOPY WITH BIOPSY [ 09433 (CPT )] Start: 11-04-2024 Subsequent hospital visit by physician 11/04/2024 11:45 AM EDT Hospital Encounter [facility] Endoscopy [address] [place] [phone] Siva Taylor MD [address] [place] [address] [place] [id number] [facility] Endoscopy Start: 11-04-2024 End: 11-04-2024 Colonoscopy flx dx w/collj spec when pfrmd [facility] Gastroenterology Start: 11-04-2024 End: 11-04-2024 Egd transoral biopsy single/multiple [facility] Gastroenterology Start: 09-26-2024 End: 09-26-2025 C reactive protein [Mass/volume] in Serum or Plasma C-reactive protein Lab Routine History of ulcerative colitis Bloody diarrhea Abdominal discomfort Expected: 09/26/2024 (Approximate), Expires: 09/26/2025 [facility] Comment on above: Expected: 09/26/2024 (Approximate), Expi res: 09/26/2025 Start: 09-26-2024 End: 09-26-2025 CBC panel - Blood by Automated count CBC Lab Routine History of ulcerative colitis Bloody diarrhea Abdominal discomfort Expected: 09/26/2024 (Approximate), Expires: 09/26/2025 [facility] Work Phone: Comment on above: Expected: 09/26/2024 (Approximate), Expi res: 09/26/2025 Start: 09-26-2024 End: 09-29-2024 Clostridioides difficile toxin genes [Presence] in Stool by RENEE with probe detection C. DIFFICILE by PCR with Reflex to EIA Microbiology Routine History of ulcerative colitis Bloody diarrhea Abdominal discomfort Expected: 09/26/2024 (Approximate), Expires: 09/29/2024 [facility] Comment on above: Expected: 09/26/2024 (Approximate), Expi res: 09/29/2024 Start: 09-26-2024 End: 09-26-2025 Comprehensive metabolic 1998 panel - Serum or Plasma Comprehensive metabolic panel Lab Routine History of ulcerative colitis Bloody diarrhea Abdominal discomfort Expected: 09/26/2024 (Approximate), Expires: 09/26/2025 [facility] Comment on above: Expected: 09/26/2024 (Approximate), Expi res: 09/26/2025 Start: 09-26-2024 End: 09-26-2025 Gastrointestinal pathogens panel - Stool by RENEE with probe detection Gastrointestinal PCR Panel Microbiology Routine History of ulcerative colitis Bloody diarrhea Abdominal discomfort Expected: 09/26/2024 (Approximate), Expires: 09/26/2025 [facility] Comment on above: Expected: 09/26/2024 (Approximate), Expi res: 09/26/2025 Start: 09-26-2024 End: 09-26-2024 Patient encounter procedure 09/26/2024 11:00 AM EDT Office Visit [facility] Gastroenterology [facility] [address] [place] [address] Siva Taylor MD [address] [place] [address] [facility] Gastroenterology - [place] Start: 12-16-2023 COVID-19 Vaccine ( season) COVID-19 Vaccine ( season) [facility] Start: 2022 Pneumococcal Vaccine: 50+ Years (2 of 2 - PCV) Pneumococcal Vaccine: 50+ Years (2 of 2 - PCV) [facility] Start: 2022 Zoster Vaccines (1 of 2) Zoster Vaccines (1 of 2) [facility] Start: 1991 DTaP/Tdap/Td Vaccines (1 - Tdap) DTaP/Tdap/Td Vaccines (1 - Tdap) [facility] Start: 1991 Hepatitis B Vaccines (1 of 3 - 19+ 3-dose series) Hepatitis B Vaccines (1 of 3 - 19+ 3-dose series) [facility] Start: 1990 Diabetes: Estimated Glomerular Filtration Rate for Kidney [facility] Diabetes: Estimated Glomerular Filtration Rate for Kidney Health [facility] Start: 1990 Diabetes: Urine Albumin-Creatinine Ratio for Kidney Health Diabetes: Urine Albumin-Creatinine Ratio for Kidney Health [facility] Start: 1990 Hepatitis C screening Hepatitis C Screening [facility] Start: 1984 Depression Screening Depression Screening [facility] Start: 1982 Diabetic foot examination Diabetes: Foot Exam [facility] Start: 1982 Glaucoma screening Diabetes: Retinopathy Screening [facility] Start: 1982 Preventive dental service Diabetes: Dental Exam [facility] Start: 1973 MMR Vaccines (1 of 1 - Standard series) MMR Vaccines (1 of 1 - Standard series) [facility] Start: 1972 Hemoglobin A1c measurement Diabetes: Hemoglobin A1C [facility] Start: 1972 HIV screening HIV Screening [facility] Start: 1972 Lipid panel Lipid Panel [facility] Start: 1972 Screening for malignant neoplasm of colon [facility] Tissue exam [facility] Work Phone: Comment on above: Release Upon Ordering for 1 Occurrences starting 11/04/2024 Payers Date Payer Category Payer Self-pay 2023 Medicaid [place] [employer] [place] [id number] 1970 Unknown [id number] 1972 Unknown [id number] 1972 Unknown [id number] 1957 Medicaid [id number] Unknown Unknown [id number] Unknown [id number] Social History Date Type Detail Facility [facility] Start: 1970 Sex assigned at Not on file [facility] Start: 11-14-2021 Sex Male (finding) [facility] Start: 09-26-2024 End: 11-04-2024 Gender identity Not on file [facility] Start: 09-26-2024 Tobacco smoking stat [facility] Never smoked tobacco [facility] Start: 09-26-2024 Tobacco use and exposure Smokeless tobacco non-user [facility] Start: 09-26-2024 End: 11-04-2024 Alcoholic beverage intake Lifetime non-drinker (finding) [facility] Start: 09-26-2024 End: 11-04-2024 History of Social function [facility] Start: 1970 Sex Assigned At Male [facility] Clinical Notes 07-02-2024 to 11-10-2024 Telephone Encounter - Rodney Panda PA-C - 11/10/2024 5:36 PM EDTTelephone Encounter - Rodney Panda PA-C - 11/10/2024 5:36 PM EDTOp Note - Siva Taylor MD - 11/04/2024 7:40 AM EDT Note Date & Type Note Facility 11-10-2024 Telephone encounter Note Noted, thank you. [facility] 11-10-2024 Miscellaneous Notes Noted, thank you. Spoke with patient who handed phone to his , Rhea. Results and recommendations given to . Explained medications and answered all questions. Has FU appointment 11/28/2024, with Dr. Taylor. Routed to [facility]. Received message from Dr. Taylor via secure chat. Completed colonoscopy today. Requested to start Can you pls start steroid taper, 40 mg for 2 weeks followed by taper 5 mg/week. And to also start Mesalamine 4.8gr/day. documented in this encounter [facility] 11-10-2024 Telephone encounter Note Spoke with patient who handed phone to his , Rhea. Results and recommendations given to . Explained medications and answered all questions. Has FU appointment 11/28/2024, with Dr. Taylor. Routed to [facility]. [facility] 11-04-2024 Miscellaneous Notes Iv was removed while pt supine and he remained supine for 15 minutes then head of bed elevated. He denies feeling lightheaded or dizzy. Ambulates to restroom and gait is steady. Discharge instructions discussed with pt and .provided with paper instructions. Dr taylor was at bedside discussing findings. Denies diaphoresis or lightheadedness. Vss. Denies pain. Up to BR s event, no change comfort SAV Del Rosario admins 2 mg Versed for pt's nerves (cause of events). Pt states he feels he no longer needs O2, now on room air sandra Olivares CRNA pt, aware of events at bedside BP 116/63, Sa02 98, states he feels better, less diaphoretic. SAV Powell is aware of prior interventions, will round howard BP 80's over 40's x 3 reads, pt requested O2 2/2 feeling short of breath: O2 at 2L NC, [facility]F wide [facility] Name: Orlin Santana Procedure Date: 11/04/2024 7:40 AM Gender: Male Date of : 1970 Age: 54 Admit Type: Outpatient Note Status: Shingle Trimmer Override Endoscopist: Siva Taylor MD, [id number] Procedure: Colonoscopy Indications: Bloody diarrhea and history of ulcerative colitis Findings: Terminal ileum was normal Moderate to severe continuous inflammation noted from cecum to anal verge characterized by erythema, congestion, granularity, fragility, increased mucus secretion, superficial ulcers noted in the whole colon. Biopsies obtained from right colon (cecum and ascending colon) transverse colon, left colon (descending colon and sigmoid colon) and rectum in separate jars. Grade 2 internal hemorrhoids and external hemorrhoids noted Impression: Ulcerative colitis Recommendation: - Patient has a contact number available for emergencies. The signs and symptoms of potential delayed complications were discussed with the patient. Return to normal activities tomorrow. Written discharge instructions were provided to the patient. - Continue present medications. - We will start steroid taper (40 mg for 2 weeks followed by taper 5 mg every week) - Mesalamine 4.8 g/day - Follow-up in GI clinic - Resume previous diet. - High fiber diet. - Repeat colonoscopy in 1 year for surveillance. - Return to referring physician as previously scheduled. Referring MD: Tisha Pérez Medicines: Monitored Anesthesia Care Procedure: Pre-Anesthesia Assessment: - Prior to the procedure, a History and Physical was performed, and patient medications and allergies were reviewed. The patient is competent. The risks and benefits of the procedure and the sedation options and risks were discussed with the patient. All questions were answered and informed consent was obtained. Patient identification and proposed procedure were verified by the physician, the nurse and the pipe coremaker in the pre-procedure area in the procedure room in the endoscopy suite. Mental Status Examination: normal. Airway Examination: normal oropharyngeal airway and neck mobility. Respiratory Examination: clear to auscultation. CV Examination: normal. Prophylactic Antibiotics: The patient does not require prophylactic antibiotics. Prior Anticoagulants: The patient has taken no anticoagulant or antiplatelet agents. ASA Grade Assessment: II - A patient with mild systemic disease. After reviewing the risks and benefits, the patient was deemed in satisfactory condition to undergo the procedure. The anesthesia plan was to use monitored anesthesia care (MAC). Immediately prior to administration of medications, the patient was re-assessed for adequacy to receive sedatives. The heart rate, respiratory rate, oxygen saturations, blood pressure, adequacy of pulmonary ventilation, and response to care were monitored throughout the procedure. The physical status of the patient was re-assessed after the procedure. After I obtained informed consent, the scope was passed under direct vision. Throughout the procedure, the patient's blood pressure, pulse, and oxygen saturations were monitored continuously. The Colonoscope was introduced through the anus and advanced to the terminal ileum. The colonoscopy was performed with ease. The patient tolerated the procedure well. The quality of the bowel preparation was adequate to identify polyps greater than 5 mm in size. The terminal ileum, ileocecal valve, appendiceal orifice, and rectum were photographed. Complications: No immediate complications. Attending Participation: I personally performed the entire procedure. Siva Taylor MD 11/04/2024 11:37:39 AM This report has been signed electronically. Number of Addenda: 0 Note Initiated On: 11/04/2024 7:40 AM [facility] Name: Orlin Santana Procedure Date: 11/04/2024 7:40 AM Gender: Male Date of : 1970 Age: 54 Admit Type: Outpatient Note Status: Finalized Endoscopist: Siva Taylor MD, [id number] Procedure: Upper GI endoscopy Indications: GERD, history of ulcerative colitis, bloody diarrhea Findings: Esophagus was normal Erythema congestion and 1 to 2 mm nonbleeding erosions noted in the gastric antrum and body, random gastric biopsies obtained D1 and D2 were normal biopsies obtained Impression: Gastric erosions Recommendation: - Patient has a contact number available for emergencies. The signs and symptoms of potential delayed complications were discussed with the patient. Return to normal activities tomorrow. Written discharge instructions were provided to the patient. - Continue present medications. - Restart omeprazole 40 mg once daily on an empty stomach at least 30 minutes before breakfast - Resume previous diet. - Return to referring physician as previously scheduled. Referring MD: Tisha Pérez Medicines: Monitored Anesthesia Care Procedure: Pre-Anesthesia Assessment: - Prior to the procedure, a History and Physical was performed, and patient medications and allergies were reviewed. The patient is competent. The risks and benefits of the procedure and the sedation options and risks were discussed with the patient. All questions were answered and informed consent was obtained. Patient identification and proposed procedure were verified by the physician, the nurse and the pipe coremaker in the pre-procedure area in the procedure room in the endoscopy suite. Mental Status Examination: normal. Airway Examination: normal oropharyngeal airway and neck mobility. Respiratory Examination: clear to auscultation. CV Examination: normal. Prophylactic Antibiotics: The patient does not require prophylactic antibiotics. Prior Anticoagulants: The patient has taken no anticoagulant or antiplatelet agents. ASA Grade Assessment: II - A patient with mild systemic disease. After reviewing the risks and benefits, the patient was deemed in satisfactory condition to undergo the procedure. The anesthesia plan was to use monitored anesthesia care (MAC). Immediately prior to administration of medications, the patient was re-assessed for adequacy to receive sedatives. The heart rate, respiratory rate, oxygen saturations, blood pressure, adequacy of pulmonary ventilation, and response to care were monitored throughout the procedure. The physical status of the patient was re-assessed after the procedure. After obtaining informed consent, the endoscope was passed under direct vision. Throughout the procedure, the patient's blood pressure, pulse, and oxygen saturations were monitored continuously. The Endoscope was introduced through the mouth, and advanced to the second part of duodenum. The upper GI endoscopy was accomplished with ease. The patient tolerated the procedure well. Complications: No immediate complications. Estimated blood loss: None. Attending Participation: I personally performed the entire procedure. Siva Taylor MD 11/04/2024 11:11:50 AM This report has been signed electronically. Number of Addenda: 0 Note Initiated On: 11/04/2024 7:40 AM documented in this encounter [facility] 11-04-2024 Nurse Note Iv was removed while pt supine and he remained supine for 15 minutes then head of bed elevated. He denies feeling lightheaded or dizzy. Ambulates to restroom and gait is steady. [facility] 11-04-2024 Note Patient: Orlin Presley [facility] our Procedure Summary Date: 11/04/24 Room / Location: [place] [address] / [facility] Gastroenterology Anesthesia Start: 1046 Anesthesia Stop: 113 Procedures: ESOPHAGOGASTRODUODENOSCOPY WITH BIOPSY COLONOSCOPY Diagnosis: Hx of ulcerative colitis Bloody diarrhea Abdominal discomfort GERD without esophagitis Providers: Siva Taylor MD Responsible Provider: Radha Anesthesiologist Augustina Ricketts/MD Scot Anesthesia Type: TIVA ASA Status: 2 Anesthesia Type: TIVA Vitals Value Taken Time BP 93/61 11/04/24 11:40 Temp 36.3 ?C (97.3 ?F) 11/04/24 11:32 Pulse 88 11/04/24 11:40 Resp 18 11/04/24 11:40 SpO2 95 % 11/04/24 12:00 Anesthesia Post Evaluation Patient location during evaluation: PACU Patient participation: complete - patient participated Level of consciousness: awake and alert Pain management: satisfactory to patient Airway patency: patent Dental Injury: no Cardiovascular status: acceptable, blood pressure returned to baseline and hemodynamically stable Respiratory status: acceptable and spontaneous ventilation Hydration status: euvolemic Nausea/Vomiting: controlled No notable events documented. Patient can be discharged once all PACU criteria has been met. [facility] 11-04-2024 Note Patient: Orlin Pearl [facility] Procedure Summary Date: 11/04/24 Room / Location: [place] [address] / [facility] Gastroenterology Anesthesia Start: 1046 Anesthesia Stop: 1133 Procedures: ESOPHAGOGASTRODUODENOSCOPY WITH BIOPSY COLONOSCOPY Diagnosis: Hx of ulcerative colitis Bloody diarrhea Abdominal discomfort GERD without esophagitis Providers: Siva Taylor MD Responsible Provider: Radha Anesthesiologist Augustina Ricketts/MD Scot Anesthesia Type: TIVA ASA Status: 2 Anesthesia Type: TIVA Vitals Value Taken Time BP 93/61 11/04/24 11:40 Temp 36.3 ?C (97.3 ?F) 11/04/24 11:32 Pulse 88 11/04/24 11:40 Resp 18 11/04/24 11:40 SpO2 95 % 11/04/24 12:00 Anesthesia Post Evaluation Patient participation: complete - patient participated Level of consciousness: alert and awake Pain management: satisfactory to patient Multimodal analgesia pain management approach Airway patency: patent Two or more strategies used to mitigate risk of obstructive sleep apnea Respiratory status: acceptable Cardiovascular status: acceptable Hydration status: acceptable No notable events documented. MIPS #430 PONV Patient did not receive an inhalational anesthetic (XX430) MIPS # 424 Perioperative Temperature Management Anesthesia time was less than 60 minutes (4256F) MIPS #477 Multimodal Pain Management Not emergent case Patient was not administered multimodal pain management (G2149) Patient reports no pain in PACU (G2149) MIPS #404 Anesthesiology Smoking Abstinence The patient is not a current smoker (e.g. cigarette, cigar, pipe, e-cigarette/vaping/marijuana) If no stop here (XX404) I completed my handoff to the receiving clinician during which we: 1. Identified the patient 2. Identified the responsible provider 3. Reviewed the pertinent medical history 4. Discussed the surgical course 5. Reviewed intra-op anesthesia management and issues during anesthesia 6. Set expectations for post-procedure period 7. Allowed opportunity for questions and acknowledgement of understanding. [facility] 11-04-2024 Nurse Note Discharge instructions discussed with pt and .provided with paper instructions. Dr taylor was at bedside discussing findings. Denies diaphoresis or lightheadedness. Vss. Denies pain. [facility] 11-04-2024 Telephone encounter Note Received message from Dr. Taylor via secure chat. Completed colonoscopy today. Requested to start Can you pls start steroid taper, 40 mg for 2 weeks followed by taper 5 mg/week. And to also start Mesalamine 4.8gr/day. [facility] 11-04-2024 Miscellaneous Notes Received message from Dr. Taylor via secure chat. Completed colonoscopy today. Requested to start Can you pls start steroid taper, 40 mg for 2 weeks followed by taper 5 mg/week. And to also start Mesalamine 4.8gr/day. documented in this encounter [facility] 11-04-2024 Nurse Note Up to BR s event, no change comfort [facility] 11-04-2024 Note Patient: Orlin Pearl ourt Procedure Information Date/Time: 11/04/24 1045 Procedures: ESOPHAGOGASTRODUODENOSCOPY WITH BIOPSY - 60 min COLONOSCOPY Location: [place] [address] / [facility] Gastroenterology Providers: Siva Taylor MD Relevant Problems No relevant active problems Past Medical History: Past Medical History: No date: Diabetes (HCC) No date: Hypertension Past Surgical History: Past Surgical History: 1994: COLONOSCOPY No date: HERNIA REPAIR Comment: bilateral, done at separate times, cannot recall date Social History: TOBACCO: reports that he has never smoked. He has never used smokeless tobacco. ETOH: reports no history of alcohol use. Social History Substance and Sexual Activity Drug Use Never Family History: Family History[1] Screening: unknown Clinical information reviewed: Allergies Meds Physical Exam Airway Mallampati: II TM distance: >3 FB Neck ROM: full Mouth Open: normal Cardiovascular Dental dentition normal Pulmonary Abdominal Anesthesia Plan patient is NPO appropriate Any family history or previous problems with anesthesia no ASA 2 TIVA Any family history or previous problems with anesthesia no The patient is not a current smoker. Anesthetic plan and risks discussed with patient and spouse. [facility]ILIA Screening Labs: Lab Results Component Value Date WBC 7.7 10/02/2024 HGB 13.1 10/02/2024 HCT 40.4 10/02/2024 MCV 75.5 (L) 10/02/2024 PLT 315 10/02/2024 Lab Results Component Value Date NA 137 10/02/2024 K 4.2 10/02/2024 CL 106 10/02/2024 CO2 21 (L) 10/02/2024 BUN 25 (H) 10/02/2024 CREATININE 1.03 10/02/2024 GLUCOSE 117 (H) 10/02/2024 CALCIUM 9.2 10/02/2024 PROT 7.3 10/02/2024 ALKPHOS 73 10/02/2024 AST 19 10/02/2024 ALT 19 10/02/2024 EGFR 87.4 10/02/2024 No echocardiogram results found for the past 14 days No results found for this or any previous visit. Equipment Requests: Additional Equipment Requests [1] No family history on file. [facility] 11-04-2024 Nurse Note SAV Del Rosario admins 2 mg Versed for pt's nerves (cause of events). Pt states he feels he no longer needs O2, now on room air [facility] 11-04-2024 Nurse Note sandra Olivares CRNA pt, aware of events at bedside T [facility] 11-04-2024 Nurse Note BP 116/63, Sa02 98, states he feels better, less diaphoretic. SAV Powell is aware of prior interventions, will round howard T [facility] 11-04-2024 Nurse Note BP 80's over 40's x 3 reads, pt requested O2 2/2 feeling short of breath: O2 at 2L NC, IVF wide open [facility] 11-04-2024 History and physical note GASTROENTEROLOGY PHYSICIAN PRE PROCEDURE NOTE HPI: Orlin Santana is a 54 y.o. male who is here today for planned endoscopic examination. All: Allergies[1] Meds: Current Medications[2] PMH: Medical History[3] No reactions to anesthesia in the past. Airway patent PE: VS: There were no vitals taken for this visit. There is no height or weight on file to calculate BMI. General: Patient in no distress CVS: Regular rate & rhythm Respiratory: Clear to auscultation Abdomen: soft and non tender ASA score : []ASA 1 [x]ASA 2 []ASA 3 ASSESSMENT & PLAN: Risks & benefits of the endoscopic procedure(s) and MAC /GA sedation were personally explained to patient / family along with alternatives to the procedure in detail including radiological and surgical options. The risks of the endoscopic procedure include but are not limited to risk from anesthesia, respiratory failure, infection, bleeding, perforation, pancreatitis with its sequelae , damage to the adjacent organs, missed lesions and need for further procedure, surgery or interventional radiological intervention, from procedure or complications. We made a shared decision to proceed with planned procedure []EGD []Colonoscopy [x]EGD&Colonoscopy Siva Taylor MD Gastroenterology [1] No Known Allergies [2] No current facility-administered medications for this encounter. [3] No past medical history on file. [facility] Phone: 11-04-2024 Note GASTROENTEROLOGY PHY SICIAN PRE PROCEDURE NOTE HPI: Orlin Santana is a 54 y.o. male who is here today for planned endoscopic examination. All: Allergies[1] Meds: Current Medications[2] PMH: Medical History[3] No reactions to anesthesia in the past. Airway patent PE: VS: There were no vitals taken for this visit. There is no height or weight on file to calculate BMI. General: Patient in no distress CVS: Regular rate & rhythm Respiratory: Clear to auscultation Abdomen: soft and non tender ASA score : []ASA 1 [x]ASA 2 []ASA 3 ASSESSMENT & PLAN: Risks & benefits of the endoscopic procedure(s) and MAC /GA sedation were personally explained to patient / family along with alternatives to the procedure in detail including radiological and surgical options. The risks of the endoscopic procedure include but are not limited to risk from anesthesia, respiratory failure, infection, bleeding, perforation, pancreatitis with its sequelae , damage to the adjacent organs, missed lesions and need for further procedure, surgery or interventional radiological intervention, from procedure or complications. We made a shared decision to proceed with planned procedure []EGD []Colonoscopy [x]EGD&Colonoscopy Siva Taylor MD Gastroenterology [1] No Known Allergies [2] No current facility-administered medications for this encounter. [3] No past medical history on file. [facility] 11-04-2024 History and physical note GASTROENTEROLOGY PHYSICIAN PRE PROCEDURE NOTE HPI: Orlin Santana is a 54 y.o. male who is here today for planned endoscopic examination. All: Allergies[1] Meds: Current Medications[2] PMH: Medical History[3] No reactions to anesthesia in the past. Airway patent PE: VS: There were no vitals taken for this visit. There is no height or weight on file to calculate BMI. General: Patient in no distress CVS: Regular rate & rhythm Respiratory: Clear to auscultation Abdomen: soft and non tender ASA score : []ASA 1 [x]ASA 2 []ASA 3 ASSESSMENT & PLAN: Risks & benefits of the endoscopic procedure(s) and MAC /GA sedation were personally explained to patient / family along with alternatives to the procedure in detail including radiological and surgical options. The risks of the endoscopic procedure include but are not limited to risk from anesthesia, respiratory failure, infection, bleeding, perforation, pancreatitis with its sequelae , damage to the adjacent organs, missed lesions and need for further procedure, surgery or interventional radiological intervention, from procedure or complications. We made a shared decision to proceed with planned procedure []EGD []Colonoscopy [x]EGD&Colonoscopy Siva Taylor MD Gastroenterology [1] No Known Allergies [2] No current facility-administered medications for this encounter. [3] No past medical history on file. documented in this encounter [facility] 11-04-2024 Note [facility] Patient Name: Orlin Santana Procedure Date: 11/04/2024 7:40 AM Gender: Male Date of : 1970 Age: 54 Admit Type: Outpatient Note Status: Shingle Trimmer Override Endoscopist: Siva Taylor MD, [id number] Procedure: Colonoscopy Indications: Bloody diarrhea and history of ulcerative colitis Findings: Terminal ileum was normal Moderate to severe continuous inflammation noted from cecum to anal verge characterized by erythema, congestion, granularity, fragility, increased mucus secretion, superficial ulcers noted in the whole colon. Biopsies obtained from right colon (cecum and ascending colon) transverse colon, left colon (descending colon and sigmoid colon) and rectum in separate jars. Grade 2 internal hemorrhoids and external hemorrhoids noted Impression: Ulcerative colitis Recommendation: - Patient has a contact number available for emergencies. The signs and symptoms of potential delayed complications were discussed with the patient. Return to normal activities tomorrow. Written discharge instructions were provided to the patient. - Continue present medications. - We will start steroid taper (40 mg for 2 weeks followed by taper 5 mg every week) - Mesalamine 4.8 g/day - Follow-up in GI clinic - Resume previous diet. - High fiber diet. - Repeat colonoscopy in 1 year for surveillance. - Return to referring physician as previously scheduled. Referring MD: Tisha Pérez Medicines: Monitored Anesthesia Care Procedure: Pre-Anesthesia Assessment: - Prior to the procedure, a History and Physical was performed, and patient medications and allergies were reviewed. The patient is competent. The risks and benefits of the procedure and the sedation options and risks were discussed with the patient. All questions were answered and informed consent was obtained. Patient identification and proposed procedure were verified by the physician, the nurse and the pipe coremaker in the pre-procedure area in the procedure room in the endoscopy suite. Mental Status Examination: normal. Airway Examination: normal oropharyngeal airway and neck mobility. Respiratory Examination: clear to auscultation. CV Examination: normal. Prophylactic Antibiotics: The patient does not require prophylactic antibiotics. Prior Anticoagulants: The patient has taken no anticoagulant or antiplatelet agents. ASA Grade Assessment: II - A patient with mild systemic disease. After reviewing the risks and benefits, the patient was deemed in satisfactory condition to undergo the procedure. The anesthesia plan was to use monitored anesthesia care (MAC). Immediately prior to administration of medications, the patient was re-assessed for adequacy to receive sedatives. The heart rate, respiratory rate, oxygen saturations, blood pressure, adequacy of pulmonary ventilation, and response to care were monitored throughout the procedure. The physical status of the patient was re-assessed after the procedure. After I obtained informed consent, the scope was passed under direct vision. Throughout the procedure, the patient's blood pressure, pulse, and oxygen saturations were monitored continuously. The Colonoscope was introduced through the anus and advanced to the terminal ileum. The colonoscopy was performed with ease. The patient tolerated the procedure well. The quality of the bowel preparation was adequate to identify polyps greater than 5 mm in size. The terminal ileum, ileocecal valve, appendiceal orifice, and rectum were photographed. Complications: No immediate complications. Attending Participation: I personally performed the entire procedure. Siva Taylor MD 11/04/2024 11:37:39 AM This report has been signed electronically. Number of Addenda: 0 Note Initiated On: 11/04/2024 7:40 AM [facility] 11[facility]04-20[facility]: Orlin Santana Procedure Date: 11/04/2024 7:40 AM Gender: Male Date of : 1970 Age: 54 Admit Type: Outpatient Note Status: Shingle Trimmer Override Endoscopist: Siva Taylor MD, [id number] Procedure: Colonoscopy Indications: Bloody diarrhea and history of ulcerative colitis Findings: Terminal ileum was normal Moderate to severe continuous inflammation noted from cecum to anal verge characterized by erythema, congestion, granularity, fragility, increased mucus secretion, superficial ulcers noted in the whole colon. Biopsies obtained from right colon (cecum and ascending colon) transverse colon, left colon (descending colon and sigmoid colon) and rectum in separate jars. Grade 2 internal hemorrhoids and external hemorrhoids noted Impression: Ulcerative colitis Recommendation: - Patient has a contact number available for emergencies. The signs and symptoms of potential delayed complications were discussed with the patient. Return to normal activities tomorrow. Written discharge instructions were provided to the patient. - Continue present medications. - We will start steroid taper (40 mg for 2 weeks followed by taper 5 mg every week) - Mesalamine 4.8 g/day - Follow-up in GI clinic - Resume previous diet. - High fiber diet. - Repeat colonoscopy in 1 year for surveillance. - Return to referring physician as previously scheduled. Referring MD: Tisha Pérez Medicines: Monitored Anesthesia Care Procedure: Pre-Anesthesia Assessment: - Prior to the procedure, a History and Physical was performed, and patient medications and allergies were reviewed. The patient is competent. The risks and benefits of the procedure and the sedation options and risks were discussed with the patient. All questions were answered and informed consent was obtained. Patient identification and proposed procedure were verified by the physician, the nurse and the pipe coremaker in the pre-procedure area in the procedure room in the endoscopy suite. Mental Status Examination: normal. Airway Examination: normal oropharyngeal airway and neck mobility. Respiratory Examination: clear to auscultation. CV Examination: normal. Prophylactic Antibiotics: The patient does not require prophylactic antibiotics. Prior Anticoagulants: The patient has taken no anticoagulant or antiplatelet agents. ASA Grade Assessment: II - A patient with mild systemic disease. After reviewing the risks and benefits, the patient was deemed in satisfactory condition to undergo the procedure. The anesthesia plan was to use monitored anesthesia care (MAC). Immediately prior to administration of medications, the patient was re-assessed for adequacy to receive sedatives. The heart rate, respiratory rate, oxygen saturations, blood pressure, adequacy of pulmonary ventilation, and response to care were monitored throughout the procedure. The physical status of the patient was re-assessed after the procedure. After I obtained informed consent, the scope was passed under direct vision. Throughout the procedure, the patient's blood pressure, pulse, and oxygen saturations were monitored continuously. The Colonoscope was introduced through the anus and advanced to the terminal ileum. The colonoscopy was performed with ease. The patient tolerated the procedure well. The quality of the bowel preparation was adequate to identify polyps greater than 5 mm in size. The terminal ileum, ileocecal valve, appendiceal orifice, and rectum were photographed. Complications: No immediate complications. Attending Participation: I personally performed the entire procedure. Siva Taylor MD 11/04/2024 11:37:39 AM This report has been signed electronically. Number of Addenda: 0 Note Initiated On: 11/04/2024 7:40 AM [facility] 11-04-2024 Note [facility] Patient Name: Orlin Santana Procedure Date: 11/04/2024 7:40 AM Gender: Male Date of : 1970 Age: 54 Admit Type: Outpatient Note Status: Finalized Endoscopist: Siva Taylor MD, [id number] Procedure: Upper GI endoscopy Indications: GERD, history of ulcerative colitis, bloody diarrhea Findings: Esophagus was normal Erythema congestion and 1 to 2 mm nonbleeding erosions noted in the gastric antrum and body, random gastric biopsies obtained D1 and D2 were normal biopsies obtained Impression: Gastric erosions Recommendation: - Patient has a contact number available for emergencies. The signs and symptoms of potential delayed complications were discussed with the patient. Return to normal activities tomorrow. Written discharge instructions were provided to the patient. - Continue present medications. - Restart omeprazole 40 mg once daily on an empty stomach at least 30 minutes before breakfast - Resume previous diet. - Return to referring physician as previously scheduled. Referring MD: Tisha Pérez Medicines: Monitored Anesthesia Care Procedure: Pre-Anesthesia Assessment: - Prior to the procedure, a History and Physical was performed, and patient medications and allergies were reviewed. The patient is competent. The risks and benefits of the procedure and the sedation options and risks were discussed with the patient. All questions were answered and informed consent was obtained. Patient identification and proposed procedure were verified by the physician, the nurse and the pipe coremaker in the pre-procedure area in the procedure room in the endoscopy suite. Mental Status Examination: normal. Airway Examination: normal oropharyngeal airway and neck mobility. Respiratory Examination: clear to auscultation. CV Examination: normal. Prophylactic Antibiotics: The patient does not require prophylactic antibiotics. Prior Anticoagulants: The patient has taken no anticoagulant or antiplatelet agents. ASA Grade Assessment: II - A patient with mild systemic disease. After reviewing the risks and benefits, the patient was deemed in satisfactory condition to undergo the procedure. The anesthesia plan was to use monitored anesthesia care (MAC). Immediately prior to administration of medications, the patient was re-assessed for adequacy to receive sedatives. The heart rate, respiratory rate, oxygen saturations, blood pressure, adequacy of pulmonary ventilation, and response to care were monitored throughout the procedure. The physical status of the patient was re-assessed after the procedure. After obtaining informed consent, the endoscope was passed under direct vision. Throughout the procedure, the patient's blood pressure, pulse, and oxygen saturations were monitored continuously. The Endoscope was introduced through the mouth, and advanced to the second part of duodenum. The upper GI endoscopy was accomplished with ease. The patient tolerated the procedure well. Complications: No immediate complications. Estimated blood loss: None. Attending Participation: I personally performed the entire procedure. Siva Taylor MD 11/04/2024 11:11:50 AM This report has been signed electronically. Number of Addenda: 0 Note Initiated On: 11/04/2024 7:40 AM [facility] 11[facility]04-2024 [facility] Name: Orlin Santana Procedure Date: 11/04/2024 7:40 AM Gender: Male Date of : 1970 Age: 54 Admit Type: Outpatient Note Status: Finalized Endoscopist: Siva Taylor MD, [id number] Procedure: Upper GI endoscopy Indications: GERD, history of ulcerative colitis, bloody diarrhea Findings: Esophagus was normal Erythema congestion and 1 to 2 mm nonbleeding erosions noted in the gastric antrum and body, random gastric biopsies obtained D1 and D2 were normal biopsies obtained Impression: Gastric erosions Recommendation: - Patient has a contact number available for emergencies. The signs and symptoms of potential delayed complications were discussed with the patient. Return to normal activities tomorrow. Written discharge instructions were provided to the patient. - Continue present medications. - Restart omeprazole 40 mg once daily on an empty stomach at least 30 minutes before breakfast - Resume previous diet. - Return to referring physician as previously scheduled. Referring MD: Tisha Pérez Medicines: Monitored Anesthesia Care Procedure: Pre-Anesthesia Assessment: - Prior to the procedure, a History and Physical was performed, and patient medications and allergies were reviewed. The patient is competent. The risks and benefits of the procedure and the sedation options and risks were discussed with the patient. All questions were answered and informed consent was obtained. Patient identification and proposed procedure were verified by the physician, the nurse and the pipe coremaker in the pre-procedure area in the procedure room in the endoscopy suite. Mental Status Examination: normal. Airway Examination: normal oropharyngeal airway and neck mobility. Respiratory Examination: clear to auscultation. CV Examination: normal. Prophylactic Antibiotics: The patient does not require prophylactic antibiotics. Prior Anticoagulants: The patient has taken no anticoagulant or antiplatelet agents. ASA Grade Assessment: II - A patient with mild systemic disease. After reviewing the risks and benefits, the patient was deemed in satisfactory condition to undergo the procedure. The anesthesia plan was to use monitored anesthesia care (MAC). Immediately prior to administration of medications, the patient was re-assessed for adequacy to receive sedatives. The heart rate, respiratory rate, oxygen saturations, blood pressure, adequacy of pulmonary ventilation, and response to care were monitored throughout the procedure. The physical status of the patient was re-assessed after the procedure. After obtaining informed consent, the endoscope was passed under direct vision. Throughout the procedure, the patient's blood pressure, pulse, and oxygen saturations were monitored continuously. The Endoscope was introduced through the mouth, and advanced to the second part of duodenum. The upper GI endoscopy was accomplished with ease. The patient tolerated the procedure well. Complications: No immediate complications. Estimated blood loss: None. Attending Participation: I personally performed the entire procedure. Siva Taylor MD 11/04/2024 11:11:50 AM This report has been signed electronically. Number of Addenda: 0 Note Initiated On: 11/04/2024 7:40 AM [facility] 10-03-2024 Note Marisa from the outreac h lab called in to let us know that patient's C. Diff test got cancelled due to having formed stool. [facility] 09-26-2024 History of Presen t illness Narrative Images from the original note were not included. [facility] - [address] [address] Dept: [phone] Dept Loc: [phone] Visit type: New patient Reason for Visit: New Patient (K51.919 Acute UC w/ complication) Assessment and Plan 1. History of ulcerative colitis - CBC - Comprehensive metabolic panel - C-reactive protein - Gastrointestinal PCR Panel - C. DIFFICILE by PCR with Reflex to EIA 2. Bloody diarrhea - CBC - Comprehensive metabolic panel - C-reactive protein - Gastrointestinal PCR Panel - C. DIFFICILE by PCR with Reflex to EIA 3. Abdominal discomfort - CBC - Comprehensive metabolic panel - C-reactive protein - Gastrointestinal PCR Panel - C. DIFFICILE by PCR with Reflex to EIA Mr Santana is a 54-year-old male with past medical history of hypertension diabetes, gout disease, WAYNE, GERD and remote history of ulcerative colitis here to establish care. He was diagnosed with ulcerative colitis when he was 20s with colonoscopy because of abdominal pain and bloody diarrhea and he was placed on steroid and mesalamine for 3 years. He stopped the medications by himself 3 years later without a repeat colonoscopy and did not have any symptoms until last 2 years. He was taking OTC naproxen in a high dose for the joint and body pain and he started to have mucus which gradually turned into bloody diarrhea at least 3-4 times a day. He was recently treated with antibiotics and steroids and he states his GI symptoms resolved while he was on steroids. He does not have abdominal pain but lower abdominal discomfort, weight loss. He denies extraintestinal manifestations of IBD. He does not have family history of colon cancer but has a cousin who has Crohn's disease. He had a longstanding GERD in the past however after he lost weight with diabetes treatment, he occasionally has GERD symptoms and is not currently on PPI. We will obtain CBC CMP CRP, rule out infection with GI panel PCR and C. difficile testing. Will schedule him for EGD and colonoscopy Follow up in about 3 months (around 12/27/2024). Siva Taylor MD Gastroenterology Subjective Mr Santana is a 54-year-old male with past medical history of hypertension diabetes, gout disease, WAYNE, GERD and remote history of ulcerative colitis here to establish care. He was diagnosed with ulcerative colitis when he was 20s with colonoscopy because of abdominal pain and bloody diarrhea and he was placed on steroid and mesalamine for 3 years. He stopped the medications by himself 3 years later without a repeat colonoscopy and did not have any symptoms until last 2 years. He was taking OTC naproxen in a high dose for the joint and body pain and he started to have mucus which gradually turned into bloody diarrhea at least 3-4 times a day. He was recently treated with antibiotics and steroids and he states his GI symptoms resolved while he was on steroids. He does not have abdominal pain but lower abdominal discomfort, weight loss. He denies extraintestinal manifestations of IBD. He does not have family history of colon cancer but has a cousin who has Crohn's disease. He had a longstanding GERD in the past however after he lost weight with diabetes treatment, he occasionally has GERD symptoms and is not currently on PPI. Review of Systems Constitutional: Negative for fatigue, fever and unexpected weight change. HENT: Negative for mouth sores and trouble swallowing. Eyes: Negative for redness and visual disturbance. Respiratory: Negative for cough and shortness of breath. Cardiovascular: Negative for chest pain, palpitations and leg swelling. Gastrointestinal: Positive for abdominal pain, blood in stool and diarrhea. Negative for abdominal distention, constipation, nausea, rectal pain and vomiting. Endocrine: Negative for cold intolerance and heat intolerance. Genitourinary: Negative for difficulty urinating. Musculoskeletal: Negative for arthralgias and joint swelling. Skin: Negative for color change, pallor and rash. Allergic/Immunologic: Negative for immunocompromised state. Neurological: Negative for weakness and numbness. Hematological: Does not bruise/bleed easily. Psychiatric/Behavioral: The patient is not nervous/anxious. Allergies[1] Current Medications[2] Medical History[3] Social History Tobacco Use Smoking status: Never Smokeless tobacco: Never Substance Use Topics Alcohol use: Never Surgical History[4] Family History[5] Objective BP 131/78 Pulse 94 Temp 36.8 C (98.2 F) Ht 5' 11 (1.803 m) Wt 213 lb (96.6 kg) SpO2 96% BMI 29.71 kg/m Physical Exam Vitals and nursing note reviewed. Constitutional: General: He is not in acute distress. Appearance: Normal appearance. He is normal weight. HENT: Head: Normocephalic. Eyes: General: No scleral icterus. Cardiovascular: Rate and Rhythm: Normal rate and regular rhythm. Pulses: Normal pulses. Pulmonary: Effort: No respiratory distress. Breath sounds: Normal breath sounds. Abdominal: General: There is no distension. Palpations: Abdomen is soft. Tenderness: There is no abdominal tenderness. There is no guarding or rebound. Hernia: No hernia is present. Musculoskeletal: General: No swelling. Cervical back: Normal range of motion. Skin: Coloration: Skin is not jaundiced. Neurological: General: No focal deficit present. Mental Status: He is alert. Psychiatric: Mood and Affect: Mood normal. Data Reviewed and Summarized Imaging/Testing: Pertinent laboratory , radiological and endoscopic work up was reviewed. [1] No Known Allergies [2] Current Outpatient Medications: allopurinol (Zyloprim) 300 MG tablet, , Disp: , Rfl: ALPRAZolam (Xanax) 1 MG tablet, , Disp: , Rfl: amLODIPine-benazepril (Lotrel) 5-40 MG capsule, , Disp: , Rfl: B-D 3CC LUER-MARIELOS SYR 25GX1 25G X 1 3 ML misc, , Disp: , Rfl: celecoxib (CeleBREX) 200 MG capsule, , Disp: , Rfl: cyclobenzaprine (Flexeril) 10 MG tablet, Take 10 mg by mouth every 8 hours as needed., Disp: , Rfl: Jardiance 10 MG, Take 10 mg by mouth daily., Disp: , Rfl: naloxone (Narcan) 4 MG/0.1ML nasal spray, instill 1 spray in 1 nostril if needed for symptoms of opioid overdose, if no responding repeat again in 3 minutes. If used call 911, Disp: , Rfl: omeprazole (PriLOSEC) [address] capsule, , Disp: , Rfl: testosterone cypionate (Depo-Testosterone) 200 MG/ML injection, , Disp: , Rfl: traMADol (Ultram) 50 MG tablet, , Disp: , Rfl: Trulicity 1.5 MG/0.5ML, , Disp: , Rfl: zolpidem (Ambien) 10 MG tablet, TAKE ONE TABLET BY MOUTH AT BEDTIME NEEDED (FOR insomnia), Disp: , Rfl: polyethylene glycol (GaviLyte-G) 236 g solution, Starting at noon on day prior to procedures, drink 8 ounces every 30 minutes until all gone and stools are clear. May add flavor packet., Disp: 4000 mL, Rfl: 0 [3] History reviewed. No pertinent past medical history. [4] History reviewed. No pertinent surgical history. [5] No family history on file. documented in this encounter [facility] 09-26-2024 Instructions Windy Sepulveda MA - 09/26/2024 11:00 AM EDT Labs and stool tests EGD and Colonoscopy at [facility], (ok to use screening spot per Dr Taylor) Santosh Chavarria. 11/04/24 at 11:45 am arrive at 10:[address] Taylor. Case #[id number] Follow up in 3 months documented in this encounter [facility] 07-28-2024 Telephone encounter Note Per pt , pt saw provider at [facility], does not wish to continue. Would like to transfer care to [facility]. Discussed with Mone, scheduled newpt visit with Dr Taylor 09/26/24 11:00 am. [facility] 07-28-2024 Miscellaneous Notes Per pt , pt saw provider at [facility], does not wish to continue. Would like to transfer care to [facility]. Discussed with Mone, scheduled newpt visit with Dr Taylor 09/26/24 11:00 am. Referral received. Pt has Acute UC with complication, referral request is for second opinion. Discussed with Mone, at this time office is unable to provide second opinion. Pt better suited for tertiary care center such as [facility] or . Called pt Rhea to discuss, lmtcb. Reha called and lvm 2x to attempt to schedule patient for OV. She states the referral was sent over twice. No referral on file. Will call Rhea and advise. Thanks documented in this encounter [facility] 07-28-2024 Note Referral received. P t has Acute UC with complication, referral request is for second opinion. Discussed with Mone, at this time office is unable to provide second opinion. Pt better suited for tertiary care center such as [facility] or . Called pt Rhea to discuss, lmtcb. [facility] 07-28-2024 Telephone encounter Note Referral received. Pt has Acute UC with complication, referral request is for second opinion. Discussed with Mone, at this time office is unable to provide second opinion. Pt better suited for tertiary care center such as [facility] or . Called pt Rhea to discuss, lmtcb. [facility] 07-23-2024 Note Rhea called and l vm 2x to attempt to schedule patient for OV. She states the referral was sent over twice. No referral on file. Will call Rhea and advise. Thanks [facility] 07-23-2024 Telephone encounter Note Rhea called and lvm 2x to attempt to schedule patient for OV. She states the referral was sent over twice. No referral on file. Will call Rhea and advise. Thanks [facility] 07-23-2024 Miscellaneous Notes Rhea called and lvm 2x to attempt to schedule patient for OV. She states the referral was sent over twice. No referral on file. Will call Rhea and advise. Thanks documented in this encounter [facility] 07-02-2024 Note GALLBLADDER ULTRASOU ND TECHNIQUE: Real-time transabdominal sonographic evaluation of the gallbladder is performed in multiple planes. COMPARISON: No comparison exams available at the time of dictation. FINDINGS: GALLBLADDER: The gallbladder is of normal size and appearance. No wall thickening, hyperemia, pericholecystic fluid or shadowing mobile calculi are identified. Echogenic mobile material identified within the gallbladder lumen suggestive of sludge. CBD: The common bile duct is normal for a patient of this stated age. ASCITES: None. IMPRESSION: 1. Gallbladder sludge. Further evaluation with HIDA scan should be determined clinically. Report electronically signed by: Jorge Ruiz MD on Jul 02, 10:12 AM EDT Read by: JORGE RUIZ MD, MD Date: 07/02/2024 10:[address] [facility] Evaluation note Diagnosis History of ulcerative colitis- Primary Bloody diarrhea Diarrhea Abdominal discomfort Abdominal pain, unspecified site Gastroesophageal reflux disease without esophagitis Esophageal reflux Hx of ulcerative colitis Bloody diarrhea Diarrhea Abdominal discomfort Abdominal pain, unspecified site GERD without esophagitis Esophageal reflux documented in this encounter [facility] noteNo assessment information availableWReg[facility] Work Phone: Evaluation note* Diagnosis Hx of ulcerative colitis Bloody diarrhea Diarrhea Abdominal discomfort Abdominal pain, unspecified site GERD without esophagitis Esophageal reflux [facility] Diagnosis Hx of ulcerative colitis- Primary documented in this encounter [facility] note* Diagnosis Hx of ulcerative colitis- Primary documented in this encounter [facility] Discharge instructions* Attachments The following attachments cannot be sent through Care Everywhere. * Ulcerative Colitis Discharge Instructions (German) [facility]SH[facility] HospitalReason for referral (narrative)No reason for referral information availableWRegency [facility] Work Phone: Reason for visit Narrative* Auth/Cert (Routine) Specialty Diagnoses / Procedures Referred By Tulio t Referred To Contact Diagnoses Hx of ulcerative colitis Bloody diarrhea Abdominal discomfort GERD without esophagitis Procedures AL EGD TRANSORAL BIOPSY SINGLE/MULTIPLE AL COLONOSCOPY FLX DX W/COLLJ SPEC WHEN PFRMD ESOPHAGOGASTRODUODENOSCOPY WITH BIOPSY COLONOSCOPY Siva Taylor MD [address] [place] [address] [address] [place] [address] Phone: tel: fax: [facility] Endoscopy [address] [place] [address] Phone: tel: Referral ID Status Reason Start Date Expiration Date Visits Re quested Visits Authorized [id number] [facility] Summary Purpose Family History No Family History Records FoundNo Family History Records FoundNo Family History Records FoundNo Family History Records FoundNo Family History Records Found Advance Directives No Advanced Directives Records FoundNo Advanced Directives Records FoundNo Advanced Directives Records FoundNo Advanced Directives Records FoundNo Advanced Directives Records Found Additional Source Comments (unrecognized sect ion and content) No Status Records FoundNo Status Records FoundNo Status Records FoundNo Status Records FoundNo Status Records Found INFORMATION SOURCE (unrecogn ized section and content) DATE CREATED AUTHOR 10/09/2017 [facility] DATE CREATED AUTHOR AUTHOR'S ORGANIZ ATION 12/12/2017 [facility] DATE CREATED AUTHOR AUTHOR'S ORGANIZ ATION 07/04/[address] [facility] DATE CREATED AUTHOR AUTHOR'S ORGANIZ ATION 11/11/2024 [facility] DATE CREATED AUTHOR AUTHOR'S ORGANIZ ATION 11/15/2024 [facility] Care Teams (unrecognized sec tion and content) Vendette Relationship Specialty Start Date End Date Tisha Pérez DO [address] [place] [place] [address] PCP - General 12/10/17 [place] Relationship Specialty Start Date End Date Tisha Pérez DO [address] [place] [address] PCP - General 12/10/17 [place] Relationship Specialty Start Date End Date Tisha Pérez DO [address] [place] [place] [address] PCP - General 12/10/17 Team Status: Active Member Role/Relationship Status Dates Dr. Tisha Pérez DO Primary Care Provider Active Team Status: Inactive Member Role/Relationship Status Dates RADHA MONTEIRO Attending Provider Active Start: Norma davenport 2024 End: October 16, 2024 Dr. Tisha Pérez DO Primary Care Provider Active Start: October 16, 2024 End: October 16, 2024 V[place]ette Relationship Specialty Start Date End Date Tisha Pérez DO [address] [place] [address] PCP - General 12/10/17 [place]ette Relationship Specialty Start Date End Date Tisha Pérez DO [address] [place] [place] [address] PCP - General 12/10/17 Vendette Relationship Specialty Start Date End Date Tisha Pérez DO [address] [facility] [address] [place] [address] PCP - General 12/10/17 Reason for Visit (unrecogniz ed section and content) Reason Comments New Patient K51.919 Acute UC w/ complication Specialty Diagnoses / Procedures Referred By Contac t Referred To Contact Gastroenterology Diagnoses K51.919 Acute UC w/ complication Procedures Consult Tisha Pérez DO [address] [place] [address] Phone: tel: fax: [facility] Gastroenterology - [address] [place] [address] Phone: tel: fax: Referral ID Status Reason Start Date Expiration Date Visits Re quested Visits Authorized [id number] Closed 07/28/2024 07/28/2025 1 1 Goals (unrecognized section and content) Goals may be documented in a n alternate section FOR RECORDS PERTAINING TO PATIENTS WHO ARE OR HAVE BEEN ENROLLED IN A CHEMICAL DEPENDENCY/SUBSTANCEABUSE PROGRAM, SOME INFORMATION MAY BE OMITTED. This clinical summary was aggregated from multiple sources. Caution should be exercised in using it in the provision of clinical care. This summary normalizes information from multiple sources, and as a consequence, information in this document may materially change the coding, format and clinical context of patient data. In addition, data may be omitted in some cases. CLINICAL DECISIONS SHOULD BE BASED ON THE PRIMARY CLINICAL RECORDS. [facility] [email or web address] [facility]. provides no warranty or guarantee of the accuracy or completeness of information in this document.
== END | disposition home or self-care (01) ==
LOC: MTLAB 09:35
PROVIDERS: PCP Family Medicine; Referring Provider Family Medicine; Visit Provider Family Medicine
DX: R53.82 Chronic fatigue, unspecified (principal)
CPT/HCPCS: 36415; 83540; 83550; 85025